=== PATIENT | female | born 1965 | race Caucasian/White ===

== ENCOUNTER 2019-10-27 10:25 | Outpatient (CLI) | payer OTHER, SELFPAY | END 2019-10-27 10:26 | disposition home or self-care (01) | PROVIDERS: PCP Family Medicine; Visit Provider Specialist | DX: L30.8 Other specified dermatitis (principal); D22.61 Melanocytic nevi of right upper limb, including shoulder | CPT/HCPCS: 88305; 88342 ==

== ENCOUNTER 2020-02-09 14:26 | Outpatient (CLI) | payer OTHER, SELFPAY | END 2020-02-09 14:27 | disposition home or self-care (01) | LOC: CHSLAB 14:29 | PROVIDERS: PCP Family Medicine; Visit Provider Specialist | DX: D18.01 Hemangioma of skin and subcutaneous tissue (principal) | CPT/HCPCS: 88305 ==

== ENCOUNTER 2020-07-05 10:14 | Outpatient (CLI) | payer OTHER, SELFPAY ==
--- NOTE | ~2020-07-05 | MM_ITS ---
EXAMINATION: MM screening christopher BI w nisha HISTORY: Screening mammogram, family history of breast cancer in her mother. TECHNIQUE: Craniocaudal and mediolateral oblique 3-D tomosynthesis images were obtained and synthetic 2-D images were generated. CAD analysis was submitted and interpreted. COMPARISON: 02/04/2019, 12/27/2017, 10/18/2016 BREAST PARENCHYMAL COMPOSITION: There are scattered areas of fibroglandular density. FINDINGS: There is no evidence of suspicious mass, calcification, or architectural distortion to sugg est malignancy in either breast. There has been no suspicious interval change. IMPRESSION: 1. No mammographic evidence of malignancy. 2. Recommend routine screening mammography in one year. BI-RADS Category 1: Negative Reviewed, dictated and finalized at location A.
== END 2020-07-05 10:15 | disposition home or self-care (01) ==
PROVIDERS: PCP Family Medicine; Visit Provider Obstetrics & Gynecology
DX: Z12.31 Encounter for screening mammogram for malignant neoplasm of breast (principal)
CPT/HCPCS: 77063; 77067

== ENCOUNTER → 2022-06-15 15:39 | Outpatient (CLI) | payer OTHER, SELFPAY ==
--- NOTE | ~2022-06-15 | MM_ITS ---
EXAMINATION: MM screening christopher BI w nisha HISTORY: Screening TECHNIQUE: Craniocaudal and mediolateral oblique 3-D tomosynthesis images were obtained and synthetic 2-D images were generated. CAD analysis was submitted and interpreted. COMPARISON: Comparison to multiple prior studies sequentially, with oldest reviewed study dated 05/2014. BREAST PARENCHYMAL COMPOSITION: There are scattered areas of fibroglandular density. FINDINGS: There are developing asymmetries in the lower outer quadrant of the right breast and upper outer quadrant of the left breast. There are no suspicious calcifications. IMPRESSION: 1. Developing bilateral breast asymmetries. 2. Additional mammographic views and possible breast ultrasound are recommended. BI-RADS Category 0: Incomplete: Needs additional imaging evaluation. Reviewed, dictated and finalized at location A. IMPRESSION: 1. Developing bilateral breast asymmetries. 2. Additional mammographic views and possible breast ultrasound are recommended . BI-RADS Category 0: Incomplete: Needs additional imaging evaluation.
== END ==
PROVIDERS: PCP Internal Medicine; Visit Provider Obstetrics & Gynecology
DX: Z12.31 Encounter for screening mammogram for malignant neoplasm of breast (principal); R92.8 Other abnormal and inconclusive findings on diagnostic imaging of breast
CPT/HCPCS: 77063; 77067

== ENCOUNTER → 2022-07-03 09:46 | Outpatient (CLI) | payer OTHER, SELFPAY ==
--- NOTE | ~2022-07-03 | MMUS_ITS ---
EXAMINATION: MM diagnostic christopher BI w nisha, US breast LT limited HISTORY: Possible bilateral breast masses on screening mammogram TECHNIQUE: Additional 3-D tomosynthesis images of the breasts were performed and synthetic 2-D images were generated. CAD analysis was submitted and interpreted. High resolution limited left breast ultr asound was performed. COMPARISON: 06/15/2022, 07/05/2020, 02/04/2019, 12/27/2017 FINDINGS: MAMMOGRAPHIC FINDINGS: Right breast: There is a return to baseline fibroglandular appearance with spot compression of the ri ght breast in the area questioned on screening mammogram. Left breast: There is an approximately 1.9 x 1.0 cm irregular, high density mass with spiculated emery ins and associated architectural distortion in the middle third of the upper outer quadrant of the br east at the 2:00 location 9 cm from the nipple. ULTRASOUND: There is a 1.8 x 1.7 cm irregular, hypoechoic, not parallel mass with posterior acoustic shadowing an d internal vascularity at the 2:00 location 7 cm from the nipple corresponding to the mammographic fi nding in question. IMPRESSION: 1. Suspicious left breast mass. 2. Ultrasound-guided biopsy is recommended. BI-RADS category 5, highly suggestive of malignancy. Reviewed, dictated and finalized at location A. IMPRESSION: 1. Suspicious left breast mass. 2. Ultrasound-guided biopsy is recommended. BI-RADS category 5, highly suggestive of malignancy.
== END ==
PROVIDERS: PCP Internal Medicine; Visit Provider Obstetrics & Gynecology
DX: R92.8 Other abnormal and inconclusive findings on diagnostic imaging of breast (principal)
CPT/HCPCS: 76642; 77062; 77066; G0279

== ENCOUNTER 2024-12-30 11:21 | Outpatient (CLI) | payer OTHER, SELFPAY ==
[2024-12-30 12:01] LABS: Alanine Aminotransferase 41 U/L (6-35); Aspartate Amino Transferase 30 U/L (14-36)
--- OUTSIDE RECORDS SUMMARY | 2024-12-30 13:24 | XMS_ITS | Encounter Summary ---
Author Organization [facility] Address [address] [place] [address] Phone Care Team Providers Care Biological Technician Name Role Phone Micah Medina MD Unavailable [phone] Dominick Blanton MD Primary Care Provider [phone] Reason for Visit * Reason Comments Medication Refill Encounter Details Date Type Department Care Team (Late st Contact Info) Description 01/01/2024 [facility]ill [facility] #2 [place] [phone] Dominick Blanton MD #[address] [address] Medication Refill Social History Tobacco Use Types Packs/Day Years Used Date Smoking Tobacco: Every Day Cigarettes 1 32 Smokeless Tobacco: Never Alcohol Use Standard Drinks/Week Comments Not Currently 1 (1 standard drink = 0.6 oz pur e alcohol) 2 x's per week PHQ-2 Answer Date Recorded Total Score - Questions 1-9 0 01/07 Education Answer Date Recorded What is the highest level of school you have completed or the highest degree you have received? 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 Requested Prescriptions Pending Prescriptions Disp Refills ALPRAZolam (XANAX) 0.5 MG Tablet [Pharmacy Med Name: ALPRAZOLAM 0.5MG TABLET] 90 Tablet 0 Sig: TAKE 1 TABLET BY MOUTH THREE (3) TIMES DAILY NEEDED FOR ANXIETY. 3.27 Not Delegated - Benzodiazepines Protocol Failed - 01/01/2024 9:02 AM Failed - This refill cannot be delegated Passed - Visit with relevant provider in past 12 months or upcoming 90 days Recent Visits Date Type Provider Dept 07/31/23 Office Visit Dominick Blanton MD [facility] 01/23/23 Office Visit [facility] [place] Showing recent visits within past 365 days and meeting all other requirements Future Appointments Date Type Provider Dept 01/29/24 Appointment Dominick Blanton MD [facility] Showing future appointments within next 90 days and meeting all other requirements documented in this encounter Plan of Treatment Upcoming Encounters Date Type Department Care Team (Late st Contact Info) Description 02/03/2025 2:00 PM CDT Lab [facility] #[address] [address] [place] [facility]/Anc[facility] 02/03/2025 2:30 PM CDT Office Visit [facility] - [place] #2 [place] [address] Dominick Blanton MD #[address] [address] documented as of this encounter Visit Diagnoses Diagnosis Anxiety Anxiety state, unspecified documented in this encounter Additional Health Concerns Assessment Noted Time PHQ-9 Depression Total Score: 0 10/19/19 21 9:34 AM 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
--- OUTSIDE RECORDS SUMMARY | 2024-12-30 13:24 | XMS_ITS | Encounter Summary ---
Author Organization [facility] Address [address] [place] [place] [address] Phone Care Team Providers Care Manager Nuclear Name Role Phone Micah Medina MD Unavailable [phone] Dominick Blanton MD Primary Care Provider [phone] Reason for Visit * Reason Comments Medication Refill Encounter Details Date Type Department Care Team (Late st Contact Info) Description 03/05/2024 Refill [facility] - Family Medicine [facility] #2 [place] [phone] Dominick Blanton MD #[address] [address] Medication Refill Social History Tobacco Use Types Packs/Day Years Used Date Smoking Tobacco: Every Day Cigarettes 1 32 Smokeless Tobacco: Never Alcohol Use Standard Drinks/Week Comments Not Currently 1 (1 standard drink = 0.6 oz pur e alcohol) 2 x's per week [facility] Utilities Answer Date Recorded In the past 12 months has [employer], gas, oil, or water company threatened to shut off services in your home? No 01/21/2024 Social Connection and Isolation Panel [NHANES] A nswer Date Recorded In a typical week, how many times do you talk on the phone with family, friends, or neighbors? Once a week 01/21/2024 How often do you get togethe r with friends or relatives? Once a week 01/21/2024 How often do you attend advent or tenriism serv ices? Patient declined 01/21/2024 Do you belong to any clubs o r organizations such as advent groups, unions, fraternal or athletic groups, or school groups? No 01/21/2024 How often do you attend meet ings of the clubs or organizations you belong to? Patient declined 01/21/2024 Are you , , di vorced, , never , or living with a partner? Never 01/21/2024 AUDIT-C Answer Date Recorded Q1: How often do you have a drink containing alc ohol? 2-4 times a month 01/21/2024 Q2: How many drinks containi ng alcohol do you have on a typical day when you are drinking? 1 or 2 01/21/2024 Q3: How often do you have si x or more drinks on one occasion? Monthly 01/21/2024 Overall Financial Resource Strain (CARDIA) Answe r Date Recorded How hard is it for you to pa y for the very basics like food, housing, medical care, and heating? Somewhat hard 01/21/2024 PHQ-2 Answer Date Recorded Total Score - Questions 1-9 0 01/07 [facility] - Occupational Stress Questionnaire Answer Date Recorded Do you feel stress - tense, restless, nervous, or anxious, or unable to sleep at night because your mind is troubled all the time - these days? To some extent 01/21/2024 Exercise Vital Sign Answer Date Recorde d On average, how many days pe r week do you engage in moderate to strenuous exercise (like a brisk walk)? 3 days 01/21/2024 On average, how many minutes do you engage in exercise at this level? 30 min 01/21/2024 Hunger Vital Sign Answer Date Recorded Within the past 12 months, y ou worried that your food would run out before you got the money to buy more. Never true Within the past 12 months, t he food you bought just didn't last and you didn't have money to get more. Sometimes true PRAPARE - Transportation Answer Date Re corded In the past 12 months, has l ack of transportation kept you from medical appointments or from getting medications? No 01/07 In the past 12 months, has l ack of transportation kept you from meetings, work, or from getting things needed for daily living? No 01/21/2024 Housing Stability Vital Sign Answer Arcadio e Recorded In the last 12 months, was t here a time when you were not able to pay the mortgage or rent on time? No 01/21/2024 In the last 12 months, how many places have you lived? 1 01/21/2024 In the last 12 months, was t here a time when you did not have a steady place to sleep or slept in a snf (including now)? No 01/21/2024 Education Answer Date Recorded What is the [...] Telephone Encounter - Shaunna Escobar RN - 03/05/2024 11:30 AM CDT Signed Yesterday (03/04/2024): ALPRAZolam (XANAX) 0.5 MG Tablet Sig: TAKE 1 TABLET BY MOUTH THREE (3) TIMES DAILY NEEDED FOR ANXIETY. Disp: 90 Tablet Refills: 0 Signed by: [facility]ick [facility] MD [facility] documented in this encounter Plan of Treatment Upcoming Encounters Date Type Department Care Team (Late st Contact Info) Description 02/03/2025 2:00 PM CDT Lab [facility] [address] [place] [address] [place] [facility]/Anc[facility] 02/03/2025 2:30 PM CDT Office Visit [facility] - [place] #2 [place] [address] [facility]2 [facility] [place] [address] documented as of this encounter Visit Diagnoses Diagnosis Anxiety Anxiety state, unspecified documented in this encounter Additional Health Concerns Assessment Noted Time PHQ-9 Depression Total Score: 0 10/19/19 21 9:34 AM 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
--- OUTSIDE RECORDS SUMMARY | 2024-12-30 13:24 | XMS_ITS | Encounter Summary ---
Author Organization [facility] Address [address] [place] [address] Phone Care Team Providers Care Diesel Locomotive Firer Name Role Phone Micah Medina MD Unavailable [phone] Dominick Blanton MD Primary Care Provider [phone] Reason for Visit * Reason Comments Medication Refill Encounter Details Date Type Department Care Team (Late st Contact Info) Description 02/12/2021 Refill [facility] [place] #2 [place] [address] Waldo Murray MD #[address] [address] Medication Refill Social History Tobacco Use Types Packs/Day Years Used Date Smoking Tobacco: Every Day Cigarettes 1 32 Smokeless Tobacco: Never Alcohol Use Standard Drinks/Week Comments Not Currently 1 (1 standard drink = 0.6 oz pur e alcohol) 2 x's per week PHQ-2 Answer Date Recorded Total Score - Questions 1-9 0 10/10 Education Answer Date Recorded What is the [...] file Not on file Not on file COVID-19 Exposure Response Date Recorded In the last month, have you been in contact with someone who was confirmed or suspected to have Coronavirus / COVID-19? No / Unsure 01/18/2021 9:45 AM CDT documented as of this encounter Miscellaneous Notes * Telephone Encounter - Dominick Blanton MD - 02/13/2021 2:03 PM CDT Prescription approved. Please call in * Telephone Encounter - Shaunna Escobar RN - 02/13/2021 1:48 PM CDT Medication failed the protocol, provider to review and approve the medication order if appropriate. Requested Prescriptions Pending Prescriptions Disp Refills albuterol 108 (90 Base) MCG/ACT Aerosol Solution [Pharmacy Med Name: ALBUTEROL HFA (PROAIR) INHALER] 8.5 Inhaler Sig: INHALE 2 PUFFS BY MOUTH EVERY 6 HOURS NEEDED FOR COUGH [facility] Pulmonology: Beta Agonists - Albuterol & Levalbuterol Failed - 02/12/2021 12:46 AM Failed - Last BP in normal range BP Readings from Last 1 Encounters: 01/18/21 (!) 128/96 Failed - May refill 2 inhalers, 0 refills one time since last office visit. May refill #50 nebulizer vials, 0 refills for albuterol or #48 vials, 0 refills for Xopenex one time since last office visit. Passed - Valid encounter within last 6 months Past Office Visits Recent Outpatient Visits 3 weeks ago Chronic prescription benzodiazepine use [facility] - [facility] Vaughn MD 3 months ago Anxiety [facility] - Waldo Vaughn MD 7 months ago Seasonal allergies [facility] - [facility]do Vaughn MD 10 months ago Chronic prescription benzodiazepine use [facility] - Family [facility] - [facility] Vaughn MD 1 year ago [facility] Upcoming Appointments Future Appointments In 2 months [facility] Blanton MD [facility] SIDE SHOW ENTERTAINER - Recent and Past Visits Recent Visits Date Type Provider Dept 01/18/21 Office Visit Waldo Murray MD [facility] 10/19/20 Office Visit Waldo Murray MD [facility] 07/13/20 Office Visit Waldo Murray MD [facility] 04/06/20 Office Visit Waldo Murray MD [facility] 12/30/19 Telemedicine Wal[facility] Murray MD [facility] Showing recent visits within past 460 days with a meds authorizing provider and meeting all other requirements Future Appointments Date Type Provider Dept 04/19/21 Appointment [facility] Showing future appointments within next 90 days with a meds authorizing provider and meeting all other requirements documented in this encounter Plan of Treatment Upcoming Encounters Date Type Department Care Team (Late st Contact Info) Description 02/03/2025 2:00 PM CDT Lab [facility] #[address] [address] [facility]/Ancillary 02/03/2025 2:30 PM CDT Office Visit [facility] #[facility] [place] [address] Dominick Blanton MD #[address] [place] [address] documented as of this encounter Visit Diagnoses Not on filedocumented in this encounter Additional Health Concerns Infection Onset Date Last Indicated Resolved Time COVID - 19 08/08/2022 08/08/2022 08/18/2022 12:1 6 AM 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
--- OUTSIDE RECORDS SUMMARY | 2024-12-30 13:24 | XMS_ITS | Encounter Summary ---
Author Organization [facility] Address [address] [place] [address] Phone Care Team Providers Care Scientific Helper Name Role Phone Micah Medina MD Unavailable [phone] Dominick Blanton MD Primary Care Provider [phone] Reason for Visit * Reason Comments Medication Refill Encounter Details Date Type Department Care Team (Late st Contact Info) Description 12/05/2023 Refill [facility] #2 [place] [address] Dominick Blanton MD #[address] [address] Medication Refill Social History Tobacco Use Types [...] Telephone Encounter - Shaunna Escobar RN - 12/06/2023 8:40 AM CDT Signed 3 days ago (12/03/2023): ALPRAZolam (XANAX) 0.5 MG Tablet Sig: Take 1 Tablet by mouth 3 times daily as needed for Anxiety. Disp: 90 Tablet Refills: 0 Signed by: Dominick Blanton MD [facility] documented in this encounter Plan of Treatment Upcoming Encounters Date Type Department Care Team (Late st Contact Info) Description 02/03/2025 2:00 PM CDT Lab 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
--- OUTSIDE RECORDS SUMMARY | 2024-12-30 13:24 | XMS_ITS | Encounter Summary ---
Author Organization [facility] Address [address] [place] [address] Phone Care Team Providers Care Communications Engineering Technician Name Role Phone Micah Medina MD Unavailable [phone] Waldo Murray MD Primary Care Provider [phone] Dominick Blanton MD Primary Care Provider [phone] Reason for Visit * Reason Comments Medication Refill Encounter Details Date Type Department Care Team (Late st Contact Info) Description 10/13/2020 Refill [facility] #2 [place] [address] Waldo Murray MD #[address] [address] Medication Refill Social History Tobacco Use Types Packs/Day Years Used Date Smoking Tobacco: Every Day Cigarettes 1 32 Smokeless Tobacco: Never Alcohol Use Standard Drinks/Week Comments Yes 1 (1 standard drink = 0.6 oz pur e alcohol) 2 x's per week PHQ-2 Answer Date Recorded PHQ-2 Score 0 05/23/2019 Education Answer Date Recorded What is the [...] on file documented as of this encounter Plan of Treatment Upcoming Encounters Date Type Department Care Team (Late st Contact Info) Description 02/03/2025 2:00 PM CDT Lab [facility] #[address] [address] [facility] [place] Lab/Ancillary 02/03/2025 2:30 PM CDT Office Visit [facility] - [place] #2 [place] [address] Dominick Blanton MD #[address] [address] documented as of this encounter Visit Diagnoses Not on filedocumented in this encounter Additional Health Concerns Infection Onset Date Last Indicated Resolved Time COVID - 19 08/08/2022 08/08/2022 08/18/2022 12:1 6 AM 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
--- OUTSIDE RECORDS SUMMARY | 2024-12-30 13:24 | XMS_ITS | Encounter Summary ---
Author Organization [facility] Healthcare Address [address] [place] [address] Care Team Providers Care Editorial Cartoonist Name Role Phone Unavailable Primary Care Provider Unavailabl e Reason for Visit * Diagnostic Imaging (Routine) - Closed Specialty Diagnoses / Procedures Referred By Harrison becker Referred To Contact Procedures Breast Imaging Screening Outside Reference Meenu Sauceda NP Phone: tel: fax: Referral ID Status Reason Start Date Expiration Date Visits Re quested Visits Authorized [id number] Closed 07/10/2022 08/09/2023 1 1 Encounter Details Date Type Department Care Team ([facility] st Contact Info) Description 07/05/[address] [facility] [address] [place] [address] Social History Tobacco Use Types Packs/Day Years Used Date Smoking Tobacco: Former Cigarettes 0.5 40.8 S tarted: 1984 Passive Smoke Exposure: Past Smokeless Tobacco: Never AUDIT-C Answer Date Recorded Q1: How often do you have a drink containing alc ohol? 2-4 times a month 06/24/2024 Q2: How many drinks containi ng alcohol do you have on a typical day when you are drinking? 7 to 9 06/24/2024 Q3: How often do you have si x or more drinks on one occasion? Monthly 06/24/2024 PHQ-2 Answer Date Recorded PHQ-2 Total Score (If total score is 3 or more points, staff should administer the PHQ-9) 0 02/18/2023 Personal Safety Answer Date Recorded Have you ever been in or are you currently in a harmful physical or emotional relationship or is someone making you feel afraid or unsafe? 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 2-4 times a month 06/24/2024 11:20 AM Shoshana Patel RN Q2: How many drinks containing alcohol do you have on a typical day when you are drinking? 7 to 9 06/24/2024 11:20 AM Shoshana Patel RN Q3: How often do you have six or more drinks on one occasion? Monthly 06/24/2024 11:20 AM Shoshana Patel RN documented as of this encounter Plan of Treatment Not on file documented as of this encounter Procedures Procedure Name Priority Date/Time Associated Diagnosis Comments BREAST IMAGING MG SCREENING OUTSIDE REFERENCE Routine 07/05/2020 12:00 AM CDT documented in this encounter Results * Breast Imaging Screening Outside Reference (07/05/2020 12:00 AM CDT) Impressions [facility] - 07/10/2022 9:10 AM CDT These images are for Reference purposes only and have not been reviewed by [facility] Radiology. There will be no report generated by a [facility] Radiologist. Narrative [facility] - 07/10/2022 9:10 AM CDT EXAMINATION: Images For Reference Purposes Only us Meenu Sauceda NP IMG MAMMO PROCEDURES Fin al Result [facility] documented in this encounter Visit Diagnoses Not on filedocumented in this encounter
--- OUTSIDE RECORDS SUMMARY | 2024-12-30 13:24 | XMS_ITS | Encounter Summary ---
Author Organization [facility] Healthcare Address [address] [place] [address] Care Team Providers Care Recruiting Assistant Name Role Phone Unavailable Primary Care Provider Unavailabl e Reason for Visit * Diagnostic Imaging (Routine) - Closed Specialty Diagnoses / Procedures Referred By Harrison becker Referred To Contact Procedures Breast Imaging Screening Outside Reference Meenu Sauceda NP Phone: tel: fax: Referral ID Status Reason Start Date Expiration Date Visits Re quested Visits Authorized [id number] Closed 07/10/2022 08/09/2023 1 1 Encounter Details Date Type Department Care Team (Late st Contact Info) Description 02/04/2019 Hospital Encounter [facility] [address] [place] [address] Social History Tobacco Use Types Packs/Day Years [...] on file 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 There will be no report generated by a [facility] Radiologist. Narrative [facility] - 07/10/2022 9:07 AM CDT EXAMINATION: Images For Reference Purposes Only us Meenu Sauceda NP IMG MAMMO PROCEDURES Fin al Result [facility] documented in this encounter Visit Diagnoses Not on filedocumented in this encounter
--- OUTSIDE RECORDS SUMMARY | 2024-12-30 13:24 | XMS_ITS | Encounter Summary ---
Author Organization [facility] Address [address] [place] [address] Phone Care Team Providers Care Dining Services Director Name Role Phone Micah Medina MD Unavailable [phone] Dominick Blanton MD Primary Care Provider [phone] Reason for Visit * Reason Onset Date Comments Medication Refill Medication Refill 06/06/2021 Encounter Details Date Type Department Care Team (Late st Contact Info) Description 06/06/2021 Refill [facility] [address] [place] [id number] Waldo Murray MD [address] [address] Medication Refill; Medication Refill Social History Tobacco Use Types [...] encounter Miscellaneous Notes * Telephone Encounter - Evangelina Perera RN - 06/06/2021 2:55 PM CDT Medication approved and signed per standing order protocol. documented in this encounter Plan of Treatment Upcoming Encounters Date Type Department Care Team (Late st Contact Info) Description 02/03/2025 2:00 PM CDT Lab [facility] [address] [address] [facility] Lab/Ancillary 02/03/2025 2:30 PM CDT Office Visit [facility] - Family Medicine - [place] [address] [place] [address] Dominick Blanton MD [address] [address] documented as of this encounter Visit Diagnoses Not on filedocumented in this encounter Additional Health Concerns Infection Onset Date Last Indicated Resolved Time COVID - 19 08/08/2022 08/08/2022 08/18/2022 12:1 6 AM FAST FOOD SALES ASSISTANT COVID - 19 Confirmed 08/08/2022 08/08/2022 022 12:18 AM FAST FOOD SALES ASSISTANT Assessment Noted Time PHQ-9 Depression Total Score: 0 10/19/19 21 9:34 AM FAST FOOD SALES ASSISTANT documented as of this encounter Care Teams Dining Services Director Relationship Specialty Start Date End Date Dominick Blanton MD [address] [address] PCP - General Family Medicine 01/20/21 Micah Medina MD [address] [address] Obstetrics & Gynecology 04/25/17 documented as of this encounter
--- OUTSIDE RECORDS SUMMARY | 2024-12-30 13:24 | XMS_ITS | Encounter Summary ---
Author Organization [facility] Address [address] [place] [address] Phone Care Team Providers Care Student Loan Counselor Name Role Phone Micah Medina MD Unavailable [phone] Dominick Blanton MD Primary Care Provider [phone] Reason for Visit * Reason Comments Medication Refill Encounter Details Date Type Department Care Team (Late st Contact Info) Description 02/26/2024 Refill [facility] - Family Medicine [facility] [address] [place] [phone] Dominick Blanton MD #[address] [address] Medication Refill Social History Tobacco Use Types Packs/Day Years Used Date Smoking Tobacco: Every Day Cigarettes 1 32 Smokeless Tobacco: Never Alcohol Use Standard Drinks/Week Comments Not Currently 1 (1 standard drink = 0.6 oz pur e alcohol) 2 x's per week [facility] Utilities Answer Date Recorded In the past 12 months has [place], gas, oil, or water company threatened to [...] week 01/21/2024 How often do you attend yarsanism or yazdanism serv ices? Patient declined 01/21/2024 Do you belong to any clubs o r organizations such as yarsanism groups, unions, fraternal or athletic groups, or [...] Total Score - Questions 1-9 0 01/07 [employer]at ional Health - Occupational Stress [...] place to sleep or slept in a intermediate (including now)? No 01/21/2024 Education Answer Date [...] Telephone Encounter - Shaunna Escobar RN - 02/26/2024 11:18 AM CDT Medication(s) [facility]illed and [facility] Chronic Medication Refill Standing Order for Pediatricand Adult Patients. Requested Prescriptions Pending Prescriptions Disp Refills metoprolol tartrate (LOPRESSOR) 25 MG Tablet [Pharmacy Med Name: METOPROLOL TARTRATE 25MG TABLET] 180 Tablet 1 Sig: TAKE 1 TABLET BY MOUTH TWO (2) TIMES DAILY. Beta-Blockers Protocol Passed - 02/26/2024 7:44 AM Passed - BP on record in the past year Clinician-entered: BP Readings from Last 3 Encounters: 01/29/24 125/73 01/22/24 124/86 07/31/23 132/83 Patient-entered: No data recorded Passed - Visit with relevant provider in past 12 months or upcoming 90 days Recent Visits Date Type Provider Dept 01/29/24 Office Visit Dominick Blanton MD [facility] [place] 01/22/24 Office Visit Jackelyn Russo PAC [facility] [place] 07/31/23 Office Visit Dominick Blanton MD [facility] Showing recent visits within past 365 days and meeting all other requirements Future Appointments No visits were found meeting these conditions. Showing future appointments within next 90 days and meeting all other requirements documented in this encounter Plan of Treatment Upcoming Encounters Date Type Department Care Team (Late st Contact Info) Description 02/03/2025 2:00 PM CDT Lab [facility] #[address] [address] [facility] Lab[facility]Ancillary 02/03/2025 2:30 PM CDT Office Visit [facility] Medical Group - Family Medicine - [place] [address] [place] [address] Dominick Blanton MD #[address] [address] documented as of this encounter Visit Diagnoses Not on filedocumented in this encounter Additional Health Concerns Assessment Noted Time PHQ-9 Depression Total Score: 0 10/19/19 21 9:34 AM LABORATORY CHEMICAL ASSISTANT documented as of this encounter Care Teams Student Loan Counselor Relationship Specialty Start Date End Date Dominick Blanton MD [address] [address] PCP - General Family Medicine 01/20/21 Micah Medina MD [address] [address] Obstetrics & Gynecology 04/25/17 documented as of this encounter
--- OUTSIDE RECORDS SUMMARY | 2024-12-30 13:24 | XMS_ITS | Encounter Summary ---
Author Organization [facility] Healthcare Address [address] [place] [address] Care Team Providers Care Polisher Hand Name Role Phone Unavailable Primary Care Provider Unavailabl e Reason for Visit * Diagnostic Imaging (Routine) - Closed Specialty Diagnoses / Procedures Referred By Harrison becker Referred To Contact Procedures Breast Imaging Screening Outside Reference Meenu Sauceda NP Phone: tel: fax: Referral ID Status Reason Start Date Expiration Date Visits Re quested Visits Authorized [id number] Closed 07/10/2022 08/09/2023 1 1 Encounter Details Date Type Department Care Team (Late st Contact Info) Description 12/27/2017 Hospital Encounter [facility] [address] [place] [address] Social History Tobacco Use Types Packs/Day Years [...] on file 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 There will be no report generated by a [facility] Radiologist. Narrative [facility] - 07/10/2022 9:07 AM CDT EXAMINATION: Images For Reference Purposes Only us Meenu Sauceda NP IMG MAMMO PROCEDURES Fin al Result [facility] documented in this encounter Visit Diagnoses Not on filedocumented in this encounter
--- OUTSIDE RECORDS SUMMARY | 2024-12-30 13:24 | XMS_ITS | Encounter Summary ---
Author Organization [facility] Address [address] [place] [address] Phone Care Team Providers Care Databases Software Consultant Name Role Phone Micah Medina MD Unavailable [phone] Dominick Blanton MD Primary Care Provider [phone] Reason for Visit * Reason Comments Medication Refill Encounter Details Date Type Department Care Team (Late st Contact Info) Description 01/03/2024 Refill [facility] [address] [place] [phone] Dominick Blanton MD #[address] [address] Medication Refill Social History Tobacco Use Types [...] Telephone Encounter - Shaunna Escobar RN - 01/03/2024 11:25 AM CDT Signed 2 days ago (01/01/2024): ALPRAZolam (XANAX) 0.5 MG Tablet Sig: TAKE 1 TABLET BY MOUTH THREE (3) TIMES DAILY NEEDED FOR ANXIETY. 3.27 Disp: 90 Tablet Refills: 0 Signed by: Dominick Blanton MD documented in this encounter Plan of Treatment Upcoming Encounters Date Type Department Care Team (Late st Contact Info) Description 02/03/2025 2:00 PM CDT Lab [facility] #[address] [address] [facility] Lab/Ancillary 02/03/2025 2:30 PM CDT Office Visit [facility] - [place] [address] [place] [address] Dominick Blanton MD #[address] [address] documented as of this encounter Visit Diagnoses Diagnosis Anxiety Anxiety state, unspecified documented in this encounter Additional Health Concerns Assessment Noted Time PHQ-9 Depression Total Score: 0 10/19/19 21 9:34 AM GRADUATE ADVISOR documented as of this encounter Care Teams Databases Software Consultant Relationship Specialty Start Date End Date Dominick Blanton MD [address] [address] PCP - General Family Medicine 01/20/21 Micah Medina MD [address] [address] Obstetrics & Gynecology 04/25/17 documented as of this encounter
--- OUTSIDE RECORDS SUMMARY | 2024-12-30 13:24 | XMS_ITS | Encounter Summary ---
Author Organization [facility] Address [address] [place] [address] Phone Care Team Providers Care Study Specialist Name Role Phone Micah Medina MD Unavailable [phone] Waldo Murray MD Primary Care Provider [phone] Dominick Blanton MD Primary Care Provider [phone] Reason for Visit * Reason Comments Medication Refill Encounter Details Date Type Department Care Team (Late st Contact Info) Description 10/09/2020 Refill [facility] - Family Medicine [facility] [address] [place] [address] Waldo Murray MD #[address] [address] Medication Refill Social History Tobacco Use Types [...] Telephone Encounter - Shaunna Escobar RN - 10/10/2020 10:34 AM CST The original prescription was reordered on 10/09/2020 by Waldo Murray MD. duplicate RONMENTAL SCIENTISTS documented in this encounter Plan of Treatment Upcoming Encounters Date Type Department Care Team (Late st Contact Info) Description 02/03/2025 2:00 PM CDT Lab [facility] #[address] [address] [facility] Lab/Ancillary 02/03/2025 2:30 PM CDT Office Visit [facility] - [place] [address] [place] [address] Dominick Blanton MD #[address] [address] documented as of this encounter Visit Diagnoses Diagnosis Anxiety Anxiety state, unspecified documented in this encounter Additional Health Concerns Infection Onset Date Last Indicated Resolved Time COVID - 19 08/08/2022 08/08/2022 08/18/2022 12:1 6 AM ENVIRONMENTAL SCIENTISTS COVID - 19 Confirmed 08/08/2022 08/08/2022 022 12:18 AM ENVIRONMENTAL SCIENTISTS Assessment Noted Time PHQ-9 Depression Total Score: 0 09/29/19 20 1:43 PM ENVIRONMENTAL SCIENTISTS documented as of this encounter Care Teams Study Specialist Relationship Specialty Start Date End Date Waldo Murray MD #[address] [address] PCP - General Family Medicine 12/19/18 5/13/21 Dominick Blanton MD #[address] [address] PCP - General Family Medicine 01/20/21 Micah Medina MD [address] [address] Obstetrics & Gynecology 04/25/17 documented as of this encounter
--- OUTSIDE RECORDS SUMMARY | 2024-12-30 13:24 | XMS_ITS | Encounter Summary ---
Author Organization [facility] Address [address] [place] [address] Phone Care Team Providers Care Assistant Therapy Aide Name Role Phone Micah Medina MD Unavailable [phone] Dominick Blanton MD Primary Care Provider [phone] Reason for Visit * Reason Comments Medication Refill Encounter Details Date Type Department Care Team (Late st Contact Info) Description 12/03/2023 Refill [facility] #[address] [place] [phone] Dominick Blanton MD #[address] [address] Medication Refill Social History Tobacco Use Types [...] Telephone Encounter - Shaunna Escobar RN - 12/03/2023 10:44 AM CDT PDMP 11/05/23 Medication failed the protocol, provider to review and approve the medication order if appropriate. Requested Prescriptions Pending Prescriptions Disp Refills ALPRAZolam (XANAX) 0.5 MG Tablet [Pharmacy Med Name: ALPRAZOLAM 0.5MG TABLET] 90 Tablet 0 Sig: Take 1 Tablet by mouth 3 times daily as needed for Anxiety. Not Delegated - Benzodiazepines Protocol Failed - 12/03/2023 8:55 AM Failed - This refill cannot be delegated Passed - Visit with relevant provider in past 12 months or upcoming 90 days Recent Visits Date Type Provider Dept 07/31/23 Office Visit Dominick Blanton MD [facility] 01/23/23 Office Visit Dominick Blanton MD [facility] Showing recent visits within past 365 days and meeting all other requirements Future Appointments Date Type Provider Dept 01/29/24 Appointment Dominick Blanton MD [facility] Showing future appointments within next 90 days and meeting all other requirements documented in this encounter Plan of Treatment Upcoming Encounters Date Type Department Care Team (Late st Contact Info) Description 02/03/2025 2:00 PM CDT Lab [facility] [address] [address] [place] Lab/Ancillary 02/03/2025 2:30 PM CDT Office Visit [facility] [place] [address] [place] [address] Dominick Blanton MD #[address] [address] documented as of this encounter Visit Diagnoses Diagnosis Anxiety Anxiety state, unspecified documented in this encounter Additional Health Concerns Assessment Noted Time PHQ-9 Depression Total Score: 0 10/19/19 21 9:34 AM PARTNER ALLIANCE MANAGER documented as of this encounter Care Teams Assistant Therapy Aide Relationship Specialty Start Date End Date Dominick Blanton MD #[address] [address] PCP - General Family Medicine 01/20/21 Micah Medina MD [address] [address] Obstetrics & Gynecology 04/25/17 documented as of this encounter
--- OUTSIDE RECORDS SUMMARY | 2024-12-30 13:24 | XMS_ITS | Clinical Summary ---
Author Organization [facility] Address [address] [facility] [address] [place] [address] Phone Care Team Providers Care Gathering Machine Feeder Name Role Phone Micah Medina MD Unavailable [phone] Dominick Blanton MD Primary Care Provider [phone] Allergies Active Allergy Reactions Criticality Noted Date Comments Chlorhexidine Itching Low 02/21/2023 Per patient: only with the wipes Doxycycline Other (see Comments) Low 11/09/2022 Facial flushing Cephalexin Other (see Comments) 01/02/2024 Generalized redness Medications Zinc 30 MG Capsule Take 30 mg by mouth daily. Active Cyanocobalamin (VITAMIN B 12 PO) Take 1,000 mg by mouth daily. Active Ibuprofen (ADVIL PO) Take by mouth as needed. Active [place]-3 Fatty Acids (OMEGA-3 FISH OIL) 1000 MG Capsule Take by mouth. Acti ve Probiotic Product (PROBIOTIC PO) Take by mouth. Active Ascorbic Acid (VITAMIN C PO) Take by mouth. Active Saawdq-Tkntm-O yal Ac-Ca Fructo (MOVE FREE JOINT HEALTH ADVANCE PO) Take by mouth. Activ e Fluticasone Furoate 27.5 MCG/SPRAY Suspension 2 Sprays by Nasal route daily. 9.1 mL 3 01/17/20 22 Active MAGNESIUM PO Take by mouth. Ac tive albuterol 108 (90 Base) MCG/ACT Aerosol Solution take 2 Puffs by inhalation every 6 hours as needed for Cough. 18 g 1 01/02/20 24 Active Cholecalcifero l (VITAMIN D-3 PO) Take by mouth. Activ e metoprolol tartrate (LOPRESSOR) 25 MG Tablet TAKE 1 TABLET BY MOUTH TWO (2) TIMES DAILY. 180 Tablet 1 08/20/20 24 Active ALPRAZolam (XANAX) 0.5 MG TabletIndicati ons:Anxiety TAKE 1 TABLET BY MOUTH THREE (3) TIMES DAILY NEEDED FOR ANXIETY. 90 Tablet 12/10/19 25 Active ALPRAZolam (XANAX) 0.5 MG TabletIndicati ons:Anxiety TAKE 1 TABLET BY MOUTH THREE (3) TIMES DAILY NEEDED FOR ANXIETY. 1.31 90 Tablet 11/08/19 25 025 Discontinued Active Problems Problem Noted Date Diagnosed Date SOB (shortness of breath) 01/18/2021 Fatigue 07/13/2020 High blood pressure 06/17/2019 Chronic prescription benzodiazepine use 03/04/20 19 Seasonal allergies 03/04/2019 Hyperlipidemia 09/02/2018 Vitamin D deficiency 09/02/2018 Obesity (BMI 30-39.9) 08/20/2018 Chronic pain of right thumb 08/20/2018 Anxiety 09/15/2015 Palpitation 09/15/2015 Tobacco abuse 09/15/2015 Encounters Date Type Department Care Team Description 12/09/2024 [facility] [facility] [place] [address] Dominick Blanton MD Medication Refill 11/07/2024 [place] [facility] [place] [facility] [place] [address] Dominick Blanton MD Medication Refill 10/08/2024 [place]ill [facility] [place] [facility] [place] [address] Dominick Blanton MD Medication Refill from Last 3 Months Immunizations Immunization Administration Dates Next Due Influenza Vaccine, Quadrivalent, PF 07/10,07/25/2022,07/19/2021,07/14 Influenza Vaccine,unspecifie d Formulation 07/25/2022 Influenza,Split Virus,Trivalent,Injectable,PF 08/03/2024 Pneumococcal Vaccine Adult - 23 Valent 8 Pneumococcal conjugate PCV20 , polysaccharide [id number] conjugate, adjuvant, PF 01/23/2023 TD VACCINE 01/29/2024 TDAP Vaccine 02/10/2013 Family History Medical History Relation Name Comments High Cholesterol Father Hypertension Father Diabetes Mother High Cholesterol Mother Hypertension Mother Relation Name Status Comments Father Alive Mother Alive Social History Tobacco Use Types Packs/Day Years Used Date Smoking Tobacco: Every Day Cigarettes 1 32 Smokeless Tobacco: Never Tobacco Cessation:Ready to Q uit: No; Counseling Given: No Alcohol Use Standard Drinks/Week Comments Not Currently 1 (1 standard drink = 0.6 oz pur e alcohol) [address] [facility] Answer Date Recorded In the past 12 months has th e [employer], gas, oil, or water [employer] threatened to shut off services in your home? No 01/21/2024 Social Connection and Isolation Panel [NHANES] A nswer Date Recorded In a typical week, how many times do you talk on the phone with family, friends, or neighbors? Once a week 01/21/2024 How often do you get togethe r with friends or relatives? Once a week 01/21/2024 How often do you attend tenriism or synagogue serv ices? Patient declined 01/21/2024 Do you belong to any clubs o r organizations such as tenriism groups, unions, fraternal or athletic groups, or [...] Total Score - Questions 1-9 0 01/07 [facility]at ional [facility] - Occupational Stress Questionnaire Answer Date Recorded [...] file Not on file Not on file Last Filed Vital Signs Vital Sign Reading Time Taken Comments Blood Pressure 132/90 08/31/2024 12:53 PM OVERWEAVER Pulse 83 08/31/2024 12:53 PM OVERWEAVER Temperature 36 C (96.8 F) 08/31/2024 12:53 PM OVERWEAVER Respiratory Rate 16 08/31/2024 12:53 PM OVERWEAVER Oxygen Saturation 90% 08/31/2024 12:53 PM OVERWEAVER Inhaled Oxygen Concentration - - Weight 111.6 kg (246 lb) 08/31/2024 12:53 PM OVERWEAVER Height 165.1 cm (5' 5 ) 08/31/2024 12:53 PM OVERWEAVER Body Mass Index 40.94 08/31/2024 12:53 PM OVERWEAVER Plan of Treatment Upcoming Encounters Date Type Department Care Team (Late st Contact Info) Description 02/03/2025 2:00 PM CDT Lab [facility] [address] [address] [facility] [place] Lab/Ancillary 02/03/2025 2:30 PM CDT Office Visit [facility] - [place] [address] [place] [address] Dominick Blanton MD #[address] [address] Health Maintenance Due Date Last Done Comments Hepatitis B Immunization (1 of 3 - 19+ 3-dose series) 1986 Cologuard 2017 Immunochemical Fecal Occult Blood 2017 Lung Cancer Screening 2017 Zoster Immunization (1 of 2) 2017 Pap Smear 04/07/2022 04/07/2019, 08/09, 02/20/2016, Additional history exists Mammogram 08/20/2023 08/20/2022, 10/2021, 07/18/2022, Additional history exists SARS-COV-2 Immunization () 05/10/2024 Cervical Cancer Screening (CCS) 09/17/2028 HPV/Cotest 09/17/2028 09/17/2023 Colonoscopy 03/17/2029 03/17/2024, 07/0 05/2024, 03/17/2024, Additional history exists Colorectal Cancer Screening 03/17/2029 Td Immunization Every 10 Years (Adults With 1 Tdap) 01/28/2034 01/29/2024, 02/10/2013 Respiratory Syncytial Virus (RSV) Immunization (Adult) (1 - 1-dose 75+ series) 2042 03/17/2024, 07/0 05/2024, 03/17/2024, Additional history exists Hepatitis C Virus (HCV) Screening Completed 08/27/2018 Pneumococcal Immunization (50+ years) Completed 01/23/2023, 08/20/2018 Pneumococcal Immunization Combined Discontinued 01/23/2023, 08/20/2018 Influenza Immunization Completed , 07/24/2023, 07/25/2022, Additional history exists Meningococcal Immunization (ACWY) Aged Out No longer eligible based on patient's age to complete this topic Rotavirus Immunization Aged Out No lo nger eligible based on patient's age to complete this topic Procedures Procedure Name Priority Date/Time Associated Diagnosis Comments HM COLONOSCOPY 03/17/2024 12:00 AM CDT MAMMOGRAM BILATERAL GENERIC 07/03/2022 12:00 AM CDT PATHOLOGY CYTOLOGY MACHINE III COREMAKER (PAP SMEAR) Routine 04/07/2019 HEPATITIS C ANTIBODY Routine 08/27/2018 10:40 AM OVERWEAVER Encounter for hepatitis C screening test for low risk patient from Last 3 Months or Most Recently Relevant to Health Maintenance Results * HM COLONOSCOPY (03/17/2024 12:00 AM CDT) 03/17/2024 Dominick Blanton MD PROCEDURE/MINOR SURGICAL ORDGuido CORRAL Final Result SCAN * MAMMOGRAM BILATERAL MISCELLANEOUS (07/03/2022 12:00 AM CDT) 07/03/2022 us Not On File Provider IMG MAMMO ORDERABLES Final Result SCAN * PATHOLOGY CYTOLOGY MACHINE III COREMAKER (PAP SMEAR) (04/07/2019) us Micah Medina MD PATHOLOGY/CYTOLOGY ORDERABLES F inal Result * HEPATITIS C ANTIBODY (08/27/2018 10:40 AM OVERWEAVER) hepatitis C antibody 0.18 <1 S/CO 08/27/2018 9:58 PM OVERWEAVER [facility] Comment: Signal/Cutoff ratio < 0.79 is Nondetected Signal/Cutoff ratio 0.80-0.99 is Grayzone Signal/Cutoff ratio > 0.99 is Detected Supplemental assays are recommended if signal/cutoff ratio is >/=1.00. Signal/cutoff ratio result >/= 5.00 is 97% predictive of positivity for recombinant immunoblot assay (RIBA) and will be reported to the [place] Department of Public Health as required. Blood specimen (specimen) Venipuncture / Unknown 08/27/2018 10:40 AM OVERWEAVER 08/27/2018 12:50 PM OVERWEAVER us Waldo Murray MD CHEMISTRY ORDERABLES Nuha l Result [facility] [address] [phone], [place] from Last 3 Months or Most Recently Relevant to Health Maintenance Insurance [facility] Care Teams Gathering Machine Feeder Relationship Specialty Start Date End Date Dominick Blanton MD #[address] [address] PCP - General Family Medicine 01/20/21 Micah Medina MD [address] [address] Obstetrics & Gynecology 04/25/17
--- OUTSIDE RECORDS SUMMARY | 2024-12-30 13:24 | XMS_ITS | Encounter Summary ---
Author Organization [facility] Address [address] [place] [address] Phone Care Team Providers Care Hotel Engineer Name Role Phone Micah Medina MD Unavailable [phone] Dominick Blanton MD Primary Care Provider [phone] Reason for Visit * Reason Comments Medication Refill Encounter Details Date Type Department Care Team (Late st Contact Info) Description 02/04/2024 Refill [facility] [place] [phone] Dominick Blanton MD #[address] [address] Medication Refill Social History Tobacco Use Types Packs/Day Years Used Date Smoking Tobacco: Every Day Cigarettes 1 32 Smokeless Tobacco: Never Alcohol Use Standard Drinks/Week Comments Not Currently 1 (1 standard drink = 0.6 oz pur e alcohol) 2 x's per week [facility] Utilities Answer Date Recorded In the past 12 months has [employer], gas, oil, or water company threatened to [...] week 01/21/2024 How often do you attend latter-day or holiness serv ices? Patient declined 01/21/2024 Do you belong to any clubs o r organizations such as latter-day groups, unions, fraternal or athletic groups, or [...] Total Score - Questions 1-9 0 01/07 [facility] - Occupational Stress [...] place to sleep or slept in a mcc (including now)? No 01/21/2024 Education Answer Date [...] encounter Miscellaneous Notes * Telephone Encounter - Meenu Garnica RN - 02/04/2024 2:41 PM CDT PDMP 01-03-24, 30 days Medication failed the protocol, provider to review and approve the medication order if appropriate. Requested Prescriptions Pending Prescriptions Disp Refills ALPRAZolam (XANAX) 0.5 MG Tablet [Pharmacy Med Name: ALPRAZOLAM 0.5MG TABLET] 90 Tablet 0 Sig: TAKE 1 TABLET BY MOUTH THREE (3) TIMES DAILY NEEDED FOR ANXIETY. 4.26 Not Delegated - Benzodiazepines Protocol Failed - 02/04/2024 8:17 AM Failed - This refill cannot be delegated Passed - Visit with relevant provider in past 12 months or upcoming 90 days Recent Visits Date Type Provider Dept 01/29/24 Office Visit Dominick Blanton MD [facility] 01/22/24 Office Visit Jackelyn Russo PAC [facility] 07/31/23 Office Visit [facility] [place] Showing recent visits within past 365 days and meeting all other requirements Future Appointments No visits were found meeting these conditions. Showing future appointments within next 90 days and meeting all other requirements documented in this encounter Plan of Treatment Upcoming Encounters Date Type Department Care Team (Late st Contact Info) Description 02/03/2025 2:00 PM CDT Lab [facility] #[address] [address] [facility] 02/03/2025 2:30 PM CDT Office Visit [facility] - [place] [address] [place] [address] Dominick Blanton MD #[address] [address] documented as of this encounter Visit Diagnoses Diagnosis Anxiety Anxiety state, unspecified documented in this encounter Additional Health Concerns Assessment Noted Time PHQ-9 Depression Total Score: 0 10/19/19 21 9:34 AM 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
--- OUTSIDE RECORDS SUMMARY | 2024-12-30 13:25 | XMS_ITS | Encounter Summary ---
Author Organization [facility] Address [address] [place] [address] Phone Care Team Providers Care Bonsai Tender Name Role Phone Micah Medina MD Unavailable [phone] Dominick Blanton MD Primary Care Provider [phone] Reason for Visit * Reason Comments Medication Refill Encounter Details Date Type Department Care Team (Late st Contact Info) Description 10/03/2023 [facility]ill [facility] [place] [phone] Dominick Blanton MD #[address] [address] Medication Refill Social History Tobacco Use Types [...] Telephone Encounter - Shaunna Escobar RN - 10/03/2023 10:28 AM CST PDMP 09/05/23 Medication failed the protocol, provider to review and approve the medication order if appropriate. Requested Prescriptions Pending Prescriptions Disp Refills ALPRAZolam (XANAX) 0.5 MG Tablet [Pharmacy Med Name: ALPRAZOLAM 0.5MG TABLET] 90 Tablet 0 Sig: TAKE 1 TABLET BY MOUTH THREE (3) TIMES DAILY NEEDED (ANXIETY). Not Delegated - Benzodiazepines Protocol Failed - 10/03/2023 9:47 AM Failed - This refill cannot be delegated Passed - Visit with relevant provider in past 12 months or upcoming 90 days Recent Visits Date Type Provider Dept 07/31/23 Office Visit Dominick Blanton MD [facility] 01/23/23 Office Visit Dominick Blanton MD [facility] [place] Showing recent visits within past 365 days and meeting all other requirements Future Appointments No visits were found meeting these conditions. 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 documented in this encounter Plan of Treatment Upcoming Encounters Date Type Department Care Team (Late st Contact Info) Description 02/03/2025 2:00 PM CDT Lab [facility] #[address] [address] [place] Lab/Ancillary 02/03/2025 2:30 PM CDT [facility] [place] [facility] [place] [address] Dominick Blanton MD #[address] [address] documented as of this encounter Visit Diagnoses Diagnosis Anxiety Anxiety state, unspecified documented in this encounter Additional Health Concerns Assessment Noted Time PHQ-9 Depression Total Score: 0 10/19/19 21 9:34 AM NECK BAND OPERATOR documented as of this encounter Care Teams Bonsai Tender Relationship Specialty Start Date End Date Dominick Blanton MD #[address] [address] PCP - General Family Medicine 01/20/21 Micah Medina MD [address] [address] Obstetrics & Gynecology 04/25/17 documented as of this encounter
--- OUTSIDE RECORDS SUMMARY | 2024-12-30 13:25 | XMS_ITS | Referral Summary ---
Author Organization [facility] Address [address] [place] [address] Care Team Providers Care Crew Car Driver Name Role Phone Micah Medina MD Unavailable [phone] Dominick Blanton MD Primary Care Provider [phone] Tavon Perez MD Unavailable [phone] Encounters Date Type Department Care Team Description 10/08/2024 1:15 PM FIRST CALENDER WORKER Lab [address] [place] [address] Malignant neoplasm of overlapping sites of left breast in female, estrogen receptor positive (HCC); Mild vitamin D deficiency 10/08/2024 1:45 PM FIRST CALENDER WORKER Office Visit [facility] [address] [place] [address] Medical Office [address] [place] [address] Shona Faye, RUFFLING MACHINE OPERATOR Malignant neoplasm of overlapping sites of left breast in female, estrogen receptor positive (HCC) (Primary Dx) 10/07/[address] [place] [address] Shona Faye, RUFFLING MACHINE OPERATOR from Last 3 Months Allergies Active Allergy Reactions Criticality Noted Date Comments Cephalexin Other (See comments) Low 01/02/2024 Generalized redness Chlorhexidine Itching Low 02/21/2023 Per patient: only with the wipes Doxycycline Flushing (skin) Low 11/09/2022 Facial flushing Medications metoprolol tartrate (LOPRESSOR) 25 mg immediate release tabletIndication s:Atrial Arrhythmia,hyper tension,heart palpitations Take 1 tablet (25 mg total) by mouth 2 (two) times a day 2 Active ALPRAZolam (XANAX) 0.5 mg tabletIndication s:anxiety Take 1 tablet (0.5 mg total) by mouth 3 (three) times a day as needed for anxiety 2 Active albuterol HFA (PROVENTIL HFA,VENTOLIN HFA,PROAIR HFA) 90 mcg/actuation inhalerIndicatio ns:Chronic Obstructive Pulmonary Disease Inhale 1-2 puffs every 4 (four) hours as needed (cold symptoms only) 2 Active docosahexaenoic acid/epa (FISH OIL ORAL)Indications :supplement Take 1 tablet by mouth every morning Active cholecalciferol, vitamin D3, (VITAMIN D3 ORAL)Indications :supplement Take 2,000 Units by mouth every morning Active zinc gluconate 30 mg tabletIndication s:supplement Take 30 mg by mouth every morning Active cyanocobalamin, vitamin B-12, (VITAMIN B-12 ORAL)Indications :supplement Take 1 tablet by mouth every morning Active Lactobacillus acidophilus (PROBIOTIC ORAL)Indications :supplement Take 1 tablet by mouth every morning Active mv-min/vit C/elderber/herb 124 (AIRBORNE ELDERBERRY ORAL) Take 2 tablet/chew tab by mouth daily before breakfast Inconsistent with taking Active ibuprofen (ADVIL,MOTRIN) 200 mg tab/cap Take 2 tablet/capsule (400 mg total) by mouth every 6 (six) hours as needed for pain 30 tablet 3 Active acetaminophen (Tylenol Extra Strength) 500 mg tablet Take 2 tablets (1,000 mg total) by mouth every 6 (six) hours as needed for pain 30 tablet 3 Active cyclobenzaprine (FLEXERIL) 10 mg tabletIndication s:Mass of upper outer quadrant of left breast TAKE 1 TABLET (10 MG TOTAL) BY MOUTH THREE (3) (THREE) TIMES a DAY NEEDED FOR MUSCLE SPASMS 20 tablet 3 Active magnesium oxide 400 mg magnesium capsuleIndicatio ns:supplement Take 400 mg by mouth nightly Active loratadine 10 mg capsule Take 10 mg by mouth nightly as needed (allergies) Active MAGNESIUM ORAL Take 1 capsule by mouth nightly Active fexofenadine (KOSTAS) 180 mg tabletIndication s:Allergic Rhinitis Take 1 tablet (180 mg total) by mouth nightly Active psyllium husk 6 gram/6 gram powder Take by mouth Active Active Problems Problem Noted Date Diagnosed Date Encounter for screening colonoscopy 09/06/2023 Personal history of colonic polyps 09/06/2023 History of bilateral mastectomy 08/07/2023 S/P mastectomy, bilateral 05/24/2023 History of left breast cancer 02/18/2023 H/O bilateral mastectomy 12/30/2022 Breast cancer in female 11/02/2022 Malignant neoplasm of overla pping sites of left breast in female, estrogen receptor positive 10/05/2022 Cancer Staging:Pathologic stage from 11/29/2022:Stage IB(pT3, pN0(sn), cM0, G2, ER+, NC+, HER2-) - Unsigned Mass of upper outer quadrant of left breast 07/10 SOB (shortness of breath) 01/18/2021 Fatigue 07/13/2020 High blood pressure 06/17/2019 Seasonal allergies 03/04/2019 Hyperlipidemia 09/02/2018 Vitamin D deficiency 09/02/2018 Chronic pain of right thumb 08/20/2018 Obesity (BMI 30-39.9) 08/20/2018 Anxiety 09/15/2015 Palpitation 09/15/2015 Immunizations Immunization Administration Dates Next Due Influenza, Quadrivalent, Spl it, Preservative Free, Intramuscular 07/24/2023,07/25/2022,07/19/2021,07/14 Influenza, Unspecified 07/25/2022 Pneumococcal Conjugate Pcv20 01/23/2023 Pneumococcal Polysaccharide PPV23 08/20/2018 Td, adsorbed 01/29/2024 Tdap 02/10/2013 Social History Tobacco Use Types Packs/Day Years Used Date Smoking Tobacco: Former Cigarettes 0.5 40.8 S tarted: 1983 Passive Smoke Exposure: Past Smokeless Tobacco: Never Tobacco Cessation:Counseling Given: Yes AUDIT-C Answer Date Recorded Q1: How often [...] on file Legal Sex Female 7:02 PM FIRST CALENDER WORKER Gender Identity Not on file Sexual Orientation Not on file Last Filed Vital Signs Vital Sign Reading Time Taken Comments Blood Pressure 149/87 10/08/2024 1:19 PM FIRST CALENDER WORKER Pulse 80 10/08/2024 1:19 PM FIRST CALENDER WORKER Temperature 36.3 C (97.3 F) 10/08/2024 1:19 PM FIRST CALENDER WORKER Respiratory Rate 20 10/08/2024 1:19 PM FIRST CALENDER WORKER Oxygen Saturation 96% 10/08/2024 1:19 PM FIRST CALENDER WORKER Inhaled Oxygen Concentration - - Weight 111.4 kg (245 lb 9.6 oz) 10/08/2024 1:19 PM FIRST CALENDER WORKER Height 162.6 cm (5' 4.02 ) 10/08/2024 1:19 PM CS T Body Mass Index 42.13 10/08/2024 1:19 PM FIRST CALENDER WORKER Plan of Treatment Not on file Medical Devices Implanted Type Area Lumber Chain Offbearer Device Identifier Shelf Expiration Date Model / Serial / Lot Bard Peripheral Vascular Ultraclip Bard 17ga 10cm 2 Trigger Permanent Ultrasound [id number] - [id number] Implanted:Qty: 1 on 07/18/2022 at [facility] Bard Peripheral Vascular [id number] / / Bard Peripheral Vascular Ultraclip Bard 17ga 10cm 2 Trigger Permanent Ultrasound [id number] - [id number] Implanted:Qty: 1 on 08/20/2022 at [facility] Bard Peripheral Vascular [id number] / / Synovis WD[employer] Marketing Mindy Mcrae Microvascular 3mm Ring Pin Protective Cover Jaw Assembly Latex Free [id number] - [id number] Implanted:Qty: 1 on 02/18/2023 by Meera Alcazar MD at [facility] Left: Breast Synovis Micro The Idle Man Allian [id number] 04/25/2027 [id number] / / [id number] Synovis Micro [employer]le [employer] Allian Baldwin Microvascular 3mm Ring Pin Protective Cover Jaw Assembly Latex Free [id number] - [id number] Implanted:Qty: 1 on 02/18/2023 by Meera Alcazar MD at [facility] Right: Breast Synovis Micro [employer] Idle Man Allian [id number] 03/21/2027 [id number] / / [id number] Synovis Micro [employer] Idle Man Allian Baldwin Cartridge Micro Clip Internal Titanium Hemostatic [id number] - [id number] Implanted:Qty: 4 on 02/18/2023 by Meera Alcazar MD at [facility] Breast [employer] Allian [id number] / / Synovis Micro [employer] Idle Man Allian Hemoclip Superfine Clip Internal [id number] - [id number] Implanted:Qty: 4 on 02/18/2023 by Meera Alcazar MD at [facility] Breast [employer]ovis Micro [employer] Idle [employer] Allian [id number] / / Ethicon Endo Surgery Ligaclip Extra 3.2mm Ligate Open Medium Clip Internal Titanium Latex Free Lt200 - [id number] Implanted:Qty: 6 on 02/18/2023 by Meera Alcazar MD at [facility] Breast Ethicon Endo Surgery [id number] / / Ethicon Endo Surgery Ligaclip Extra 2.6mm Ligate Open Small Clip Internal Titanium Latex Free Lt100 - [id number] Implanted:Qty: 4 on 02/18/2023 by Meera Alcazar MD at [facility] Breast Ethicon Endo Surgery [id number] / / Ethicon Endo Surgery Ligaclip Extra 3.2mm Ligate Open Medium Clip Internal Titanium Latex Free Lt200 - [id number] Implanted:Qty: 1 on 02/18/2023 by Meera Alcazar MD at [facility] Left: Breast Ethicon Endo Surgery [id number] 08/08/2027 LT200 / / [id number] Explanted Type Area Lumber Chain Offbearer Device Identifier Shelf Expiration Date Model / Serial / Lot Sientra Inc Stretcher Drier Operator Tissue 15x13.8cm Breast 600-720cc Texture Integrate Allox2-Fh15e - [id number] - [id number] Implanted:Qty: 1 on 11/02/2022 by Meera Alcazar MD at [facility] Explanted:Qty: 1 on 01/04/2023 at [facility] Left: Breast Sientra Inc 06/28/2025 ALLOX2-FH15 E / [id number] / Sientra Inc Stretcher Drier Operator Tissue 15x13.8cm Breast 600-720cc Texture Integrate Allox2-Fh15e - [id number] - [id number] Implanted:Qty: 1 on 11/02/2022 by Meera Alcazar MD at [facility] Explanted:Qty: 1 on 02/18/2023 by Meera Alcazar MD at [facility] Right: Breast Sientra Inc 02/12/2026 ALLOX2-FH15 E / [id number] / Procedures Procedure Name Priority Date/Time Associated Diagnosis Comments EGFR Routine 10/08/2024 1:05 PM FIRST CALENDER WORKER Malignant neoplasm of overlapping sites of left breast in female, estrogen receptor positive (HCC) DIFFERENTIAL AUTO Routine 10/08/2024 1:0 5 PM FIRST CALENDER WORKER Malignant neoplasm of overlapping sites of left breast in female, estrogen receptor positive (HCC) CBC WITH AUTO DIFFERENTIAL Routine 10/08/2024 1:05 PM FIRST CALENDER WORKER Malignant neoplasm of overlapping sites of left breast in female, estrogen receptor positive (HCC) COMPREHENSIVE METABOLIC PANEL Routine 10/08/2024 1:05 PM FIRST CALENDER WORKER Malignant neoplasm of overlapping sites of left breast in female, estrogen receptor positive (HCC) COLONOSCOPY 03/17/2024 8:58 AM CDT from Last 3 Months or Most Recently Relevant to Health Maintenance Results * eGFR (10/08/2024 1:05 PM FIRST CALENDER WORKER) eGFR >90 >=60 mL/min/1. 73 m2 Comment: Interpretive Data Reference Interval Normal >/= 90 mL/min/1.73m2 Mildly decreased* 60 - 89 mL/min/1.73m2 Mildly to moderately decreased 45 - 59 mL/min/1.73m2 Moderately to severely decreased 30 - 44 mL/min/1.73m2 Severely decreased 15 - 29 mL/min/1.73m2 Kidney Failure < 15 mL/min/1.73m2 *Relative to young adult level Estimated glomerular filtration rate is determined by the 2020 CKD-EPI equation recommended by the National Kidney Foundation (A Unifying Approach to GFR Estimation: Recommendations of the NKF-ASK Task Force on Reassessing the Inclusion of Race in Diagnosing Kidney Disease, JASN 2020). The CKD-EPI equation should not be used for patients with unstable renal function and has not been validated in children and those over 70. Current interpretive data was last reviewed 2021. Testing performed by: [facility], [facility], [place], [address] Blood 10/08/2024 1:05 PM FIRST CALENDER WORKER 10/08/2024 1:48 PM FIRST CALENDER WORKER us Shona Faye RUFFLING MACHINE OPERATOR LAB BLOOD ORDERABLES Final Result KE PERRY (MINEOLA) [address] [facility] Department [place] [address] * Differential, auto (10/08/2024 1:05 PM FIRST CALENDER WORKER) Neutrophil abs 3.8 1.5 - 6.5 K/cumm Comment:Testing performed by : [facility] [address], Medical Office [facility] [address], [place] [address] Imm gran abs 0.0 0.0 - 0.1 K/cumm KE PERRY ([place]INE[place]) Comment:Testing performed by : [facility] [address], Medical Office [facility] [address], [place] [address] Lymphocyte abs 1.8 0.8 - 3.3 K/cumm [facility] (MAIK) Comment:Testing performed by : [facility] [address], Medical Office [address], [place] [address] Monocyte abs 0.3 0.2 - 0.8 K/cumm [facility] (MAIK) Comment:Testing performed by : [facility] [address], Medical Office [address], [place] [address] Eosinophil abs 0.1 0.0 - 0.5 K/cumm [facility] (MAIK) Comment:Testing performed by : [facility] [address], Medical Office [address], [place] [address] Basophil abs 0.0 0.0 - 0.1 K/cumm [facility] (MAIK) Comment:Testing performed by : [facility] [address], Medical Office [address], [place] [address] Neutrophil pct 61.8 % [facility] (MAIK) Comment: Interpretive Data Percent cell count reference ranges are not reported, since discordance with absolute values may lead to misinterpretation of CBC data. Current Interpretive Data was last revised on 2022. Testing performed by: [facility] [address], Medical Office [facility] [address], [place] [address] Imm gran pct 0.5 % [facility] (MAIK) Comment: Interpretive Data Percent cell count reference ranges are not reported, since discordance with absolute values may lead to misinterpretation of CBC data. Current Interpretive Data was last revised on 2022. Testing performed by: [facility] [address], Medical Office [facility] [address], [place] [address] Lymphocyte pct 29.4 % [facility] (MAIK) Comment: Interpretive Data Percent cell count reference ranges are not reported, since discordance with absolute values may lead to misinterpretation of CBC data. Current Interpretive Data was last revised on 2022. Testing performed by: [facility] [address], Medical Office [address], [place] [address] Monocyte pct 5.5 % [facility] (MAIK) Comment: Interpretive Data Percent cell count reference ranges are not reported, since discordance with absolute values may lead to misinterpretation of CBC data. Current Interpretive Data was last revised on 2022. Testing performed by: [facility] [address], Medical Office [facility] [address], [place] [address] Eosinophil pct 2.3 % SHAHZAD PERRY (MAIK) Comment: Interpretive Data Percent cell count reference ranges are not reported, since discordance with absolute values may lead to misinterpretation of CBC data. Current Interpretive Data was last revised on 2022. Testing performed by: [facility] [address], Medical Office [facility] [address], [place] [address] Basophil pct 0.5 % KE PERRY (MAIK) Comment: Interpretive Data Percent cell count reference ranges are not reported, since discordance with absolute values may lead to misinterpretation of CBC data. Current Interpretive Data was last revised on 2022. Testing performed by: [facility] [address], Medical Office [facility] [address] [facility] [address], [place] [address] Blood 10/08/2024 1:05 PM FIRST CALENDER WORKER 10/08/2024 1:06 PM FIRST CALENDER WORKER us Shona Faye RUFFLING MACHINE OPERATOR LAB BLOOD ORDERABLES Final Result KE PERRY (MAIK) 1 [facility] [place] [address] * CBC with auto differential (10/08/2024 1:05 PM FIRST CALENDER WORKER) WBC 6.2 3.8 - 9.9 K/cumm Comment:Testing performed by : [facility] [address], Medical Office [facility] [address], [place] [address] Hgb 14.2 11.9 - 15.5 g/dL KE PERRY (MAIK) Comment:Testing performed by : [facility] [address], Medical Office [facility] [address], [place] [address] Hct 43.3 35.6 - 45.5 % KE PERRY (MAIK) Comment:Testing performed by : [facility] [address], Medical Office [facility] [address], [place] [address] Plt 223 150 - 400 K/cumm [facility] (MAIK) Comment:Testing performed by : [facility] [address], Medical Office [facility] [address], [place] [address] MPV 9.1 9.1 - 12.3 fL [facility] (MAIK) Comment:Testing performed by : [facility] [address], Medical Office [address], [place] [address] RBC 5.13 3.90 - 5.20 M/cumm [facility] (MAIK) Comment:Testing performed by : [facility] [address], Medical Office [facility] [address], [place] [address] MCV 84.4 81.3 - 96.4 fL [facility] (MAIK) Comment:Testing performed by : [facility] [address], Medical Office [facility] [address], [place] [address] MCH 27.7 27.1 - 33.3 pg [facility] (MAIK) Comment:Testing performed by : [facility] [address], Medical Office [facility] [address], [place] [address] MCHC 32.8 32.3 - 35.7 g/dL [facility] (MAIK) Comment:Testing performed by : [facility] [address], Medical Office [facility] [address], [place] [address] RDW CV 12.8 11.1 - 14.9 % [facility] (MAIK) Comment:Testing performed by : [facility] [address], Medical Office [facility] [address], [place] [address] RDW SD 39.8 35.7 - 48.1 fL [facility] (MAIK) Comment:Testing performed by : [facility] [address], Medical Office [address], [place] [address] NRBC abs Not Measured 0.00 - 0.01 K/cumm [facility] (MAIK) Comment:Testing performed by : [facility] [address], Medical Office [facility] [address], [place] [address] Blood 10/08/2024 1:05 PM FIRST CALENDER WORKER 10/08/2024 1:06 PM FIRST CALENDER WORKER Shona Faye RUFFLING MACHINE OPERATOR LAB BLOOD ORDERABLES Final Result KE PERRY ([place]) [address] [place] [address] Department [place] [address] * Comprehensive metabolic panel (10/08/2024 1:05 PM FIRST CALENDER WORKER) Sodium 139 135 - 145 mmol/L Comment:Testing performed by : [facility], [facility], [place], [address] Potassium, pl 4.1 3.3 - 4.9 mmol/L [facility] ([place]) Comment:Testing performed by : [facility], [place], [address] Chloride 99 97 - 110 mmol/L [facility] ([place]) Comment:Testing performed by : [facility], [place], [address] CO2 29 22 - 32 mmol/L [facility] (MAIK) Comment:Testing performed by : [facility], [place], [address] Anion gap 11 2 - 15 mmol/L [facility] (MAIK) Comment:Testing performed by : [facility], [place], [address] BUN 21 6 - 25 mg/dL [facility] ([place]) Comment:Testing performed by : [place], [address] Creatinine 0.70 0.60 - 1.10 mg/dL [facility] ([place]) Comment:Testing performed by : [place], [address] Glucose 120 70 - 199 mg/dL [facility] ([place]) Comment: Interpretive Data Fasting glucose >/= 126 mg/dl is diagnostic for diabetes. Fasting is defined as no caloric intake for at least 8 hours. Fasting glucose between 100 mg/dl to 125 mg/dl is diagnostic of prediabetes. In a patient with classic symptoms of hyperglycemia or hyperglycemic crisis, a random glucose >/= 200 mg/dl is diagnostic for diabetes. In the absence of unequivocal hyperglycemia, results should be confirmed by repeat testing. The classification and Diagnosis of Diabetes Diabetes Care 2021; 46: S19-S40. Current interpretive data was last revised 2022. Testing performed by: [facility], [facility], [place], [address] Calcium 9.5 8.5 - 10.3 mg/dL [facility] ([place]) Comment:Testing performed by : [facility], [facility], [place], [address] Bilirubin, total 0.4 0.1 - 1.2 mg/dL [facility] ([place]) Comment:Testing performed by : [facility], [place], [address] Protein, pl 7.4 6.5 - 8.5 g/dL [facility] ([place]) Comment:Testing performed by : [facility], [place], [address] Albumin 4.5 3.5 - 5.0 g/dL [facility] ([place]) Comment:Testing performed by : [facility], [place], [address] Alk phos 60 40 - 130 Units/L [facility] ([place]) Comment:Testing performed by : [facility], [place], [address] ALT 34 7 - 45 Units/L [facility] ([place]) Comment:Testing performed by : [facility], [place], [address] AST 19 10 - 45 Units/L [facility] ([place]) Comment:Testing performed by : [facility], [place], [address] Blood 10/08/2024 1:05 PM FIRST CALENDER WORKER 10/08/2024 1:48 PM FIRST CALENDER WORKER Shona Faye RUFFLING MACHINE OPERATOR LAB BLOOD ORDERABLES Final Result [facility] ([place]) [address] [place] [address] Department [place] [address] * Colonoscopy (03/17/2024 8:58 AM CDT) Anatomical Region Laterality Modality Other Narrative Procedure Note Alfredo Womack MD - 03/17/2024 8:58 AM CDT [facility] Patient Name: Jackelyn Padron Procedure Date: 03/17/2024 8:58 AM Date of : 1965 Admit Type: Outpatient Age: 58 Gender: Female Attending MD: Alfredo Womack M.D. Room: [facility] ENDOSCOPY ROOM 1 Note Status: Finalized Patient Profile: This is a 58 year old female. History of polyps.Noted complaints of chronic loose bowel movements andurgency Procedure: Colonoscopy Indications: High risk colon cancer surveillance: Personalhistory of colonic polyps, Last colonoscopy: February 2018 Referring MD: Dominick Blanton M.D. Providers: Alfredo Womack M.D. Impression: - Overall unremarkable colonoscopy. Random colon biopsy performed - Three 2 to 3 mm polyps in the sigmoid colon andin the descending colon, removed with a jumbo cold forceps. Resected and retrieved. - Internal hemorrhoids. Recommendation: - Repeat colonoscopy in 5-7 years for screening purposes. - Await pathology results. - Continue present medications. - Try probiotics daily and fiber supplementsdaily. Medicines: Monitored Anesthesia Care Complications: No immediate complications. Estimated Blood Loss: Estimated blood loss: none. Procedure: Pre-Anesthesia Assessment: - Prior to the procedure, a History and Physicalwas performed, and patient medications and allergieswere reviewed. The patient's tolerance of previous anesthesia was also reviewed. The risks andbenefits of the procedure and the sedation options and risks were discussed with the patient. All questions were answered, and informed consent was obtained. Prior Anticoagulants: The patient has taken noanticoagulant or antiplatelet agents. ASA Grade Assessment: Per anesthesia note and evaluation. After reviewing the risks and benefits, the patient was deemed in satisfactory condition to undergo the procedure. The benefits, risks and alternatives of theprocedure and sedation were discussed and informed consentwas obtained. All questions were answered. Please referto the signed informed consent document in the medical record. The bowel preparation used was Miralax via split dose instruction. The bowel preparation usedwas bisacodyl tablets via split dose instruction. The scope was passed under direct vision. The Pediatric Colonoscope [id number]-H190L [id number] was introducedthrough the anus and advanced to the the cecum, identifiedby appendiceal orifice and ileocecal valve. Thequality of the bowel preparation was good. Bowel prep was administered using a split dose. Findings: The perianal and digital rectal examinations were normal. The cecum appeared normal. The transverse colon and ascending colon appeared normal. The entire colon mucosa overall was normal and random colon biopsy wasperformed Three semi-sessile polyps were found in the sigmoid colon anddescending colon. The polyps were 2 to 3 mm in size. These polyps were removedwith a jumbo cold forceps. Resection and retrieval were complete. Internal hemorrhoids were found during retroflexion. The hemorrhoids were small. Electronically signed by Alfredo Womack M.D. Alfredo Womack M.D. 03/17/2024 11:14:11 AM Number of Addenda: 0 Note Initiated On: 03/17/2024 8:58 AM Procedure Code(s): --- Professional --- 54972, Colonoscopy, flexible; with biopsy, single or multiple Diagnosis Code(s): --- Professional --- Z86.010, Personal history of colonic polyps K64.8, Other hemorrhoids D12.5, Benign neoplasm of sigmoid colon D12.4, Benign neoplasm of descending colon CPT copyright 2020 [employer]. All rights reserved. The codes documented in this report are preliminary and upon certified procedural coder reviewmay be revised to meet current compliance requirements. Recognized by the [employer] for promoting quality in endoscopy Alfredo Womack MD ENDOSCOPY PROCEDURES Final Result from Last 3 Months or Most Recently Relevant to Health Maintenance Insurance [place] [id number] Advance Directives For more information, please contact: [phone] * Full Code (Latest Code Status on File) Date Activated Date Inactivated Comments 03/17/2024 8:57 AM 03/17/2024 3:50 PM * Full Code Date Activated Date Inactivated Comments 03/17/2024 8:57 AM 03/17/2024 8:57 AM * Full Code Date Activated Date Inactivated Comments 02/18/2023 4:43 PM 02/21/2023 2:29 PM * Full Code Date Activated Date Inactivated Comments 11/02/2022 6:03 PM 11/03/2022 2:43 PM Care Teams Crew Car Driver Relationship Specialty Start Date End Date Dominick Blanton MD [address] [address] PCP - General Family Medicine 07/04/22 Micah Medina MD [address] [address] Referring Physician Obstetrics and Gynecology 07/04/22 Tavon Perez MD [address] [address] Medical Oncologist/Athletic Coach Hematology and Oncology 01/31/23
--- OUTSIDE RECORDS SUMMARY | 2024-12-30 13:25 | XMS_ITS | Encounter Summary ---
Author Organization [facility] Address [address] [place] [address] Phone Care Team Providers Care Tangled Yarn Spool Straightener Name Role Phone Micah Medina MD Unavailable [phone] Dominick Blanton MD Primary Care Provider [phone] Reason for Visit * Reason Comments Medication Refill Encounter Details Date Type Department Care Team (Late st Contact Info) Description 07/05/2023 Refill [facility] #2 [place] [phone] Dominick Blanton MD #[address] [address] Medication Refill Social History Tobacco Use Types [...] Telephone Encounter - Shaunna Escobar RN - 07/05/2023 11:56 AM CDT PDMP 05/31/23 Medication failed the protocol, provider to review and approve the medication order if appropriate. Requested Prescriptions Pending Prescriptions Disp Refills ALPRAZolam (XANAX) 0.5 MG Tablet [Pharmacy Med Name: ALPRAZOLAM 0.5MG TABLET] 90 Tablet 0 Sig: TAKE 1 TABLET BY MOUTH THREE (3) TIMES DAILY NEEDED FOR ANXIETY. Not Delegated - Benzodiazepines Protocol Failed - 07/05/2023 11:54 AM Failed - This refill cannot be delegated Passed - Visit with relevant provider in past 12 months or upcoming 90 days Recent Visits Date Type Provider Dept 01/23/23 Office Visit Dominick Blanton MD [facility] 08/08/22 Office Visit Cira Pino APRN, GEOTHERMAL SHEET METAL WORKER [facility] 07/25/22 Office Visit Dominick Blanton MD [facility] Showing recent visits within past 365 days and meeting all other requirements Future Appointments Date Type Provider Dept 07/31/23 Appointment Dominick Blanton MD [facility] Showing future appointments within next 90 days and meeting all other requirements documented in this encounter Plan of Treatment Upcoming Encounters Date Type Department Care Team (Late st Contact Info) Description 02/03/2025 2:00 PM CDT Lab [facility] [place] [address] [facility] 02/03/2025 2:30 PM CDT Office Visit [facility] - [place] [facility] [place] [address] Dominick Blanton MD #2 [facility] [address] [place] [address] documented as of this encounter Visit Diagnoses Diagnosis Anxiety Anxiety state, unspecified documented in this encounter Additional Health Concerns Assessment Noted Time PHQ-9 Depression Total Score: 0 10/19/19 21 9:34 AM 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
--- OUTSIDE RECORDS SUMMARY | 2024-12-30 13:25 | XMS_ITS | Encounter Summary ---
Author Organization [facility] Address [address] [place] [address] Phone Care Team Providers Care Wind Operations Manager Name Role Phone Micah Medina MD Unavailable [phone] Dominick Blanton MD Primary Care Provider [phone] Reason for Visit * Reason Comments Medication Refill Encounter Details Date Type Department Care Team (Late st Contact Info) Description 2023 Refill [facility] - Family Medicine [facility] #2 [place] [phone] Dominick Blanton MD #[address] [address] Medication Refill Social History Tobacco Use Types [...] Telephone Encounter - Shaunna Escobar RN - 2023 2:29 PM CDT Signed 3 days ago (07/05/2023): ALPRAZolam (XANAX) 0.5 MG Tablet Sig: TAKE 1 TABLET BY MOUTH THREE (3) TIMES DAILY NEEDED FOR ANXIETY. Disp: 90 Tablet ? Refills: 0 Signed by: Dominick Blanton MD [facility] documented in this encounter Plan of Treatment Upcoming Encounters Date Type Department Care Team (Late st Contact Info) Description 02/03/2025 2:00 PM CDT Lab [facility] #[address] [address] [facility] [place] Lab/[facility] 02/03/2025 2:30 PM CDT Office Visit [facility] - Family Medicine - [place] #2 [place] [address] Dominick Blanton MD #[address] [address] documented as of this encounter Visit Diagnoses Diagnosis Anxiety Anxiety state, unspecified documented in this encounter Additional Health Concerns Assessment Noted Time PHQ-9 Depression Total Score: 0 10/19/19 21 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
--- OUTSIDE RECORDS SUMMARY | 2024-12-30 13:25 | XMS_ITS | Encounter Summary ---
Author Organization [facility] Address [address] [place] [address] Phone Care Team Providers Care Microsoft Exchange Administrator Name Role Phone Micah Medina MD Unavailable [phone] Dominick Blanton MD Primary Care Provider [phone] Reason for Visit * Reason Comments Medication Refill Encounter Details Date Type Department Care Team (Late st Contact Info) Description 05/29/2023 Refill [facility] #2 [place] [phone] Dominick Blanton MD #[address] [address] Medication Refill Social History Tobacco Use Types [...] encounter Miscellaneous Notes * Telephone Encounter - Trina Reilly RN - 05/29/2023 2:59 PM CDT PDMP 04/29/23 30 day supply Medication failed the protocol, provider to review and approve the medication order if appropriate. Requested Prescriptions Pending Prescriptions Disp Refills ALPRAZolam (XANAX) 0.5 MG Tablet [Pharmacy Med Name: ALPRAZOLAM 0.5MG TABLET] 90 Tablet 0 Sig: TAKE 1 TABLET BY MOUTH THREE (3) TIMES DAILY NEEDED FOR ANXIETY. 8.21 Not Delegated - Benzodiazepines Protocol Failed - 05/29/2023 9:10 AM Failed - This refill cannot be delegated Passed - Visit with relevant provider in past 12 months or upcoming 90 days Recent Visits Date Type Provider Dept 01/23/23 Office Visit Dominick Blanton MD [facility] [place] 08/08/22 Office Visit Cira Pino APRN, ASSET CARD CLERK [facility] [place] 07/25/22 Office Visit Dominick Blanton MD [facility] [place] Showing recent visits within past 365 days and meeting all other requirements Future Appointments Date Type Provider Dept 07/31/23 Appointment Dominick Blanton MD [facility] [place] Showing future appointments within next 90 days and meeting all other requirements documented in this encounter Plan of Treatment Upcoming Encounters Date Type Department Care Team (Late st Contact Info) Description 02/03/2025 2:00 PM CDT Lab [facility] #[address] [place] [address] [place] [facility] 02/03/2025 2:30 PM CDT Office Visit [facility] - [facility] - [place] #2 [facility] [address] Dominick Blanton MD #2 [facility] [address] [place] [address] documented as of this encounter Visit Diagnoses Diagnosis Anxiety Anxiety state, unspecified documented in this encounter Additional Health Concerns Assessment Noted Time PHQ-9 Depression Total Score: 0 10/19/19 21 9:34 AM 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
--- OUTSIDE RECORDS SUMMARY | 2024-12-30 13:25 | XMS_ITS | Encounter Summary ---
Author Organization [facility] Address [address] [place] [address] Phone Care Team Providers Care Hospice Nurse Practitioner Name Role Phone Micah Medina MD Unavailable [phone] Dominick Blanton MD Primary Care Provider [phone] Reason for Visit * Reason Comments Medication Refill Encounter Details Date Type Department Care Team (Late st Contact Info) Description 11/04/2023 Refill [facility] - Family Medicine [facility] #2 [place] [phone] Dominick Blanton MD #[address] [address] Medication Refill Social History Tobacco Use Types [...] Telephone Encounter - Shaunna Escobar RN - 11/04/2023 3:51 PM CST PDMP 10/05/23 Medication failed the protocol, provider to review and approve the medication order if appropriate. Requested Prescriptions Pending Prescriptions Disp Refills ALPRAZolam (XANAX) 0.5 MG Tablet [Pharmacy Med Name: ALPRAZOLAM 0.5MG TABLET] 90 Tablet 0 Sig: Take 1 Tablet by mouth 3 times daily as needed for Anxiety. Not Delegated - Benzodiazepines Protocol Failed - 11/04/2023 8:49 AM Failed - This refill cannot be [...] 90 days and meeting all other requirements KER AND PATCHER documented in this encounter Plan of Treatment Upcoming Encounters Date Type Department Care Team (Late st Contact Info) Description 02/03/2025 2:00 PM CDT Lab [facility] #[address] [address] [place] [facility] 02/03/2025 2:30 PM CDT Office Visit [facility] - [facility] - [place] #2 [place] [address] Dominick Blanton MD #[address] [address] documented as of this encounter Visit Diagnoses Diagnosis Anxiety Anxiety state, unspecified documented in this encounter Additional Health Concerns Assessment Noted Time PHQ-9 Depression Total Score: 0 10/19/19 21 9:34 AM SPARKER AND PATCHER documented as of this encounter Care Teams Hospice Nurse Practitioner Relationship Specialty Start Date End Date Dominick Blanton MD #[address] [address] PCP - General Family Medicine 01/20/21 Micah Medina MD [address] [facility] [address] [address] Obstetrics & Gynecology 04/25/17 documented as of this encounter
--- OUTSIDE RECORDS SUMMARY | 2024-12-30 13:25 | XMS_ITS | Encounter Summary ---
Author Organization [facility] Address [address] [place] [address] Phone Care Team Providers Care Hardware Trainer Name Role Phone Micah Medina MD Unavailable [phone] Dominick Blanton MD Primary Care Provider [phone] Reason for Visit * Reason Comments Medication Refill Encounter Details Date Type Department Care Team (Late st Contact Info) Description 10/07/2023 Refill [facility] - Family Medicine [facility] #2 [place] [phone] Dominick Blanton MD #[address] [address] Medication Refill Social History Tobacco Use Types [...] Telephone Encounter - Shaunna Escobar RN - 10/07/2023 3:25 PM CST Signed 4 days ago (10/03/2023): ALPRAZolam (XANAX) 0.5 MG Tablet Sig: TAKE 1 TABLET BY MOUTH THREE (3) TIMES DAILY NEEDED (ANXIETY). Disp: 90 Tablet ? Refills: 0 Signed by: Dominick Blanton MD H TRAIN ASSEMBLER documented in this encounter Plan of Treatment Upcoming Encounters Date Type Department Care Team (Late st Contact Info) Description 02/03/2025 2:00 PM CDT Lab [facility] #[address] [address] [facility] Lab/Ancillary 02/03/2025 2:30 PM CDT Office Visit [facility] - Family Medicine - [place] #2 [place] [address] Dominick Blanton MD #[address] [address] documented as of this encounter Visit Diagnoses Diagnosis Anxiety Anxiety state, unspecified documented in this encounter Additional Health Concerns Assessment Noted Time PHQ-9 Depression Total Score: 0 10/19/19 21 9:34 AM WATCH TRAIN ASSEMBLER documented as of this encounter Care Teams Hardware Trainer Relationship Specialty Start Date End Date Dominick Blanton MD #[address] [address] PCP - General Family Medicine 01/20/21 Micah Medina MD [address] [address] Obstetrics & Gynecology 04/25/17 documented as of this encounter
--- OUTSIDE RECORDS SUMMARY | 2024-12-30 13:25 | XMS_ITS | Clinical Summary ---
Author Organization [facility] Address [address] [place] [address] Care Team Providers Care Glue Jointer Operator Name Role Phone Micah Medina MD Unavailable [phone] Dominick Blanton MD Primary Care Provider [phone] Tavon Perez MD Unavailable [phone] Allergies Active Allergy Reactions Criticality Noted Date [...] from 11/29/2022:Stage IB(pT3, pN0(sn), cM0, G2, ER+, PA+, HER2-) - Unsigned Mass of upper outer quadrant of left breast 07/10 SOB (shortness of breath) 01/18/2021 Fatigue 07/13/2020 High blood pressure 06/17/2019 Seasonal allergies 03/04/2019 Hyperlipidemia 09/02/2018 Vitamin D deficiency 09/02/2018 Chronic pain of right thumb 08/20/2018 Obesity (BMI 30-39.9) 08/20/2018 Anxiety 09/15/2015 Palpitation 09/15/2015 Encounters Date Type Department Care Team Description 10/08/2024 1:45 PM MORTGAGE LOAN OFFICER Office Visit [facility] [address] [place] [address] Medical Office [address] [place] [address] Shona Faye, LYNN Malignant neoplasm of overlapping sites of left breast in female, estrogen receptor positive (HCC) (Primary Dx) 10/08/2024 1:15 PM MORTGAGE LOAN OFFICER Lab [address] [place] [address] Malignant neoplasm of overlapping sites of left breast in female, estrogen receptor positive (HCC); Mild vitamin D deficiency 10/07/[address] [place] [address] Shona Faye, LYNN from Last 3 Months Immunizations Immunization Administration Dates Next Due Influenza, Quadrivalent, Spl it, Preservative Free, Intramuscular 07/24/2023,07/25/2022,07/19/2021,07/14 Influenza, Unspecified 07/25/2022 Pneumococcal Conjugate Pcv20 01/23/2023 Pneumococcal Polysaccharide PPV23 08/20/2018 Td, adsorbed 01/29/2024 Tdap 02/10/2013 Surgical History Surgery Date Site/Laterality Comments BREAST BIOPSY 07/18/2022 Left BREAST BIOPSY 08/20/2022 Left CHOLECYSTECTOMY 09/09/2009 - 09/08/2010 KNEE ARTHROSCOPY 09/09/2007 - 09/08/2008 Right TUBAL LIGATION 20 yrs ago per pt COLONOSCOPY 09/09/2017 - 09/08/2018 INSERTION OF TISSUE SUBSTITUTE CROSSING GUARD AFTER MASTECTOMY 11/02/2022 Bilateral BREAST RECONSTRUCTION 09/09/2022 - 09/08/2023 DANIELLE flap BREAST SURGERY 02/18/2023 free flap DANIELLE; removal tissue oval or circular glass cutter Medical History Medical History Date Comments Overweight Anxiety Hyperlipidemia 09/02/2018 Breast cancer (HCC) Family History Medical History Relation Name Comments Breast cancer Mother Anesthesia problems Neg Hx Relation Name Status Comments Mother Social History Tobacco Use Types Packs/Day Years [...] on file Legal Sex Female 7:02 PM MORTGAGE LOAN OFFICER Gender Identity Not on file Sexual Orientation Not on file Obstetrics History Last Filed Vital Signs Vital Sign Reading Time Taken Comments Blood Pressure 149/87 10/08/2024 1:19 PM MORTGAGE LOAN OFFICER Pulse 80 10/08/2024 1:19 PM MORTGAGE LOAN OFFICER Temperature 36.3 C (97.3 F) 10/08/2024 1:19 PM MORTGAGE LOAN OFFICER Respiratory Rate 20 10/08/2024 1:19 PM MORTGAGE LOAN OFFICER Oxygen Saturation 96% 10/08/2024 1:19 PM MORTGAGE LOAN OFFICER Inhaled Oxygen Concentration - - Weight 111.4 kg (245 lb 9.6 oz) 10/08/2024 1:19 PM MORTGAGE LOAN OFFICER Height 162.6 cm (5' 4.02 ) 10/08/2024 1:19 PM CS T Body Mass Index 42.13 10/08/2024 1:19 PM MORTGAGE LOAN OFFICER Plan of Treatment Health Maintenance Due Date Last Done Comments Cervical Cancer Screening 1965 Hepatitis C Screening 1965 Hepatitis B Screening 1985 Regular Well Visit/Exam 18-64 1985 Lung Cancer Screening 2017 Zoster Vaccine (1 of 2) 2017 Breast Cancer Screening-Mammogram 07/05/2021 07/05/2020 Depression Screening 12/31/2023 12/30/2022 DTaP/Tdap/Td Vaccine (3 - Td or Tdap) 01/28/2034 01/29/2024, 02/10/2013 Colon Cancer Screening-Colonoscopy 03/17/2034 03/17/2024 Pneumococcal vaccine <65 Aged Out 01/23/2023, 08/09 No longer eligible based on patient's age to complete this topic Influenza Vaccine Completed 08/03/2024, , 07/25/2022, Additional history exists Medical Devices Implanted Type Area Product Architect Device Identifier Shelf Expiration Date Model / Serial / Lot Bard Peripheral Vascular Ultraclip Bard 17ga 10cm 2 Trigger Permanent Ultrasound [id number] - [id number] Implanted:Qty: 1 on 07/18/2022 at [facility] Bard Peripheral Vascular [id number] / / Bard Peripheral Vascular Ultraclip Bard 17ga 10cm 2 Trigger Permanent Ultrasound [id number] - [id number] Implanted:Qty: 1 on 08/20/2022 at [facility] Bard Peripheral Vascular [id number] / / Moove Ins Twelvefold Marco Antonioian [place] Microvascular 3mm Ring Pin Protective Cover Jaw Assembly Latex Free [id number] - [id number] Implanted:Qty: 1 on 02/18/2023 by Meera Alcazar MD at [facility] Left: Breast [employer] Mindy [id number] 04/25/2027 [id number] / / [id number] Synovis Twelvefold Allian [place] Microvascular 3mm Ring Pin Protective Cover Jaw Assembly Latex Free [id number] - [id number] Implanted:Qty: 1 on 02/18/2023 by Meera Alcazar MD at [facility] Right: Breast Syn[employer] Jazzdesk Allian [id number] 03/21/2027 [id number] / / [id number] Syn[employer]is Twelvefold Allian [place] Cartridge Micro Clip Internal Titanium Hemostatic [id number] - [id number] Implanted:Qty: 4 on 02/18/2023 by Meera Alcazar MD at [facility] Breast [employer] Allian [id number] / / Synovis Micro Jazzdesk Allian Hemoclip Superfine Clip Internal [id number] - [id number] Implanted:Qty: 4 on 02/18/2023 by Meera Alcazar MD at [facility] Breast [employer]k Allian [id number] / / Ethicon End[employer] Ligaclip Extra 3.2mm Ligate Open Medium Clip Internal Titanium Latex Free Lt200 - [id number] Implanted:Qty: 6 on 02/18/2023 by Meera Alcazar MD at [facility] Breast Ethicon Endo Surgery [id number] / / Ethicon Endo Surgery Ligaclip Extra 2.6mm Ligate Open Small Clip Internal Titanium Latex Free Lt100 - [id number] Implanted:Qty: 4 on 02/18/2023 by Meera Alcazar MD at [facility] Breast Eth[employer] Endo Surgery LT100 / / Ethicon Endo Surgery Ligaclip Extra 3.2mm Ligate Open Medium Clip Internal Titanium Latex Free Lt200 - [id number] Implanted:Qty: 1 on 02/18/2023 by Meera Alcazar MD at [facility] Left: Breast [employer] End[employer] [id number] 08/08/2027 LT200 / / [id number] Explanted Type Area Product Architect Device Identifier Shelf Expiration Date Model / Serial / Lot Sientra Inc Health And Wellness Coach Tissue 15x13.8cm Breast 600-720cc Texture Integrate Allox2-Fh15e - [id number] - [id number] Implanted:Qty: 1 on 11/02/2022 by Meera Alcazar MD at [facility] Explanted:Qty: 1 on 01/04/2023 at [facility] Left: Breast [employer] 06/28/2025 ALLOX2-FH15 E / [id number] / [employer] Health And Wellness Coach Tissue 15x13.8cm Breast 600-720cc Texture Integrate Allox2-Fh15e - [id number] - [id number] Implanted:Qty: 1 on 11/02/2022 by Meera Alcazar MD at [facility] Explanted:Qty: 1 on 02/18/2023 by Meera Alcazar MD at [facility] Right: Breast [employer] 02/12/2026 ALLOX2-FH15 E / [id number] / Procedures Procedure Name Priority Date/Time Associated Diagnosis Comments EGFR Routine 10/08/2024 1:05 PM MORTGAGE LOAN OFFICER Malignant neoplasm of overlapping sites of left breast in female, estrogen receptor positive (HCC) DIFFERENTIAL AUTO Routine 10/08/2024 1:0 5 PM MORTGAGE LOAN OFFICER Malignant neoplasm of overlapping sites of left breast in female, estrogen receptor positive (HCC) CBC WITH AUTO DIFFERENTIAL Routine 10/08/2024 1:05 PM MORTGAGE LOAN OFFICER Malignant neoplasm of overlapping sites of left breast in female, estrogen receptor positive (HCC) COMPREHENSIVE METABOLIC PANEL Routine 10/08/2024 1:05 PM MORTGAGE LOAN OFFICER Malignant neoplasm of overlapping sites of left breast in female, estrogen receptor positive (HCC) COLONOSCOPY 03/17/2024 8:58 AM CDT from Last 3 Months or Most Recently Relevant to Health Maintenance Results * eGFR (10/08/2024 1:05 PM MORTGAGE LOAN OFFICER) eGFR >90 >=60 mL/min/1. 73 m2 Comment: [...] was last reviewed 2021. Testing performed by: [facility], [facility], [place], [address] Blood 10/08/2024 1:05 PM MORTGAGE LOAN OFFICER 10/08/2024 1:48 PM MORTGAGE LOAN OFFICER us Shona Faye CHAIN MAKER LOOM CONTROL LAB BLOOD ORDERABLES Final Result KE PERRY (RAKE) [address] [facility] Department [place] [address] * Differential, auto (10/08/2024 1:05 PM MORTGAGE LOAN OFFICER) Neutrophil abs 3.8 1.5 - 6.5 K/cumm Comment:Testing performed by : [facility] [address], Medical Office [facility] [address], [place] [address] Imm gran abs 0.0 0.0 - 0.1 K/cumm [facility] ([place]) Comment:Testing performed by : [facility] [address], Medical Office [facility] [address], [place] [address] Lymphocyte abs 1.8 0.8 - 3.3 K/cumm [facility] ([place]) Comment:Testing performed by : [facility] [address], Medical Office [facility] [address], [place] [address] Monocyte abs 0.3 0.2 - 0.8 K/cumm [facility] ([place]) Comment:Testing performed by : [facility] [address], Medical Office [facility] [address], [place] [address] Eosinophil abs 0.1 0.0 - 0.5 K/cumm [facility] ([place]) Comment:Testing performed by : [facility] [address], Medical Office [facility] [address], [place] [address] Basophil abs 0.0 0.0 - 0.1 K/cumm [facility] ([place]) Comment:Testing performed by : [facility] [address], Medical Office [facility] [address], [place] [address] Neutrophil pct 61.8 % [facility] ([place]) Comment: Interpretive Data Percent cell count reference ranges are not reported, since discordance with absolute values may lead to misinterpretation of CBC data. Current Interpretive Data was last revised on 2022. Testing performed by: [facility] [address], Medical Office [facility] [address], [place] [address] Imm gran pct 0.5 % [facility] ([place]) Comment: Interpretive Data Percent cell count reference ranges are not reported, since discordance with absolute values may lead to misinterpretation of CBC data. Current Interpretive Data was last revised on 2022. Testing performed by: [facility] [address], Medical Office [facility] [address], [place] [address] Lymphocyte pct 29.4 % [facility] ([place]) Comment: Interpretive Data Percent cell count reference ranges are not reported, since discordance with absolute values may lead to misinterpretation of CBC data. Current Interpretive Data was last revised on 2022. Testing performed by: [facility] [address], Medical Office [facility] [address], [place] [address] Monocyte pct 5.5 % [facility] ([place]) Comment: Interpretive Data Percent cell count reference ranges are not reported, since discordance with absolute values may lead to misinterpretation of CBC data. Current Interpretive Data was last revised on 2022. Testing performed by: [facility] [address], Medical Office [facility] B [facility] [address], [place] [address] Eosinophil pct 2.3 % [facility] ([place]) Comment: Interpretive Data Percent cell count reference ranges are not reported, since discordance with absolute values may lead to misinterpretation of CBC data. Current Interpretive Data was last revised on 2022. Testing performed by: [facility] [address], Medical Office [facility] B [facility] [address], [place] [address] Basophil pct 0.5 % [facility] ([place]) Comment: Interpretive Data Percent cell count reference ranges are not reported, since discordance with absolute values may lead to misinterpretation of CBC data. Current Interpretive Data was last revised on 2022. Testing performed by: [facility] [address], Medical Office [facility] [address], [place] [address] Blood 10/08/2024 1:05 PM MORTGAGE LOAN OFFICER 10/08/2024 1:06 PM MORTGAGE LOAN OFFICER us Shona Faye CHAIN MAKER LOOM CONTROL LAB BLOOD ORDERABLES Final Result [facility] ([place]) [address] [facility] Department of Laboratories [place], [place] [address] * CBC with auto differential (10/08/2024 1:05 PM MORTGAGE LOAN OFFICER) WBC 6.2 3.8 - 9.9 K/cumm Comment:Testing performed by : [facility] [address], Medical Office [facility] [address], [place] [address] Hgb 14.2 11.9 - 15.5 g/dL [facility] ([place]) Comment:Testing performed by : [facility] [address], Medical Office [facility] [address], [place] [address] Hct 43.3 35.6 - 45.5 % [facility] ([place]) Comment:Testing performed by : [facility] [address], Medical Office [facility] [address], [place] [address] Plt 223 150 - 400 K/cumm [facility] ([place]) Comment:Testing performed by : [facility] [address], Medical Office [facility] [address], [place] [address] MPV 9.1 9.1 - 12.3 fL [facility] ([place]) Comment:Testing performed by : [facility] [address], Medical Office [address], [place] [address] RBC 5.13 3.90 - 5.20 M/cumm [facility] ([place]) Comment:Testing performed by : [facility] [address], Medical Office [facility] [address], [place] [address] MCV 84.4 81.3 - 96.4 fL KE PERRY (MAIK) Comment:Testing performed by : [facility] [address], Medical Office [facility] [address], [place] [address] MCH 27.7 27.1 - 33.3 pg KE PERRY (MAIK) Comment:Testing performed by : [facility] [address], Medical Office [facility] [address], [place] [address] MCHC 32.8 32.3 - 35.7 g/dL KE PERRY (MAIK) Comment:Testing performed by : [facility] [address], Medical Office [facility] [address], [place] [address] RDW CV 12.8 11.1 - 14.9 % KE PERRY (MAIK) Comment:Testing performed by : [facility] [address], Medical Office [facility] [address], [place] [address] RDW SD 39.8 35.7 - 48.1 fL KE PERRY (MAIK) Comment:Testing performed by : [facility] [address], Medical Office [facility] B [facility] [address], [place] [address] NRBC abs Not Measured 0.00 - 0.01 K/cumm KE PERRY ([place]) Comment:Testing performed by : [facility] [address], Medical Office [facility] B [facility] [address], [place] [address] Blood 10/08/2024 1:05 PM MORTGAGE LOAN OFFICER 10/08/2024 1:06 PM MORTGAGE LOAN OFFICER Shona Faye CHAIN MAKER LOOM CONTROL LAB BLOOD ORDERABLES Final Result KE PERRY ([place]IK) [address] [facility] Department [place] [address] * Comprehensive metabolic panel (10/08/2024 1:05 PM MORTGAGE LOAN OFFICER) Sodium 139 135 - 145 mmol/L Comment:Testing performed by : [facility], [facility], [place], [address] Potassium, pl 4.1 3.3 - 4.9 mmol/L [facility] ([place]) Comment:Testing performed by : [facility], [place], [address] Chloride 99 97 - 110 mmol/L [facility] ([place]) Comment:Testing performed by : [facility], [facility], [place], [address] CO2 29 22 - 32 mmol/L [facility] ([place]) Comment:Testing performed by : [facility], [facility], [place], [address] Anion gap 11 2 - 15 mmol/L [facility] ([place]) Comment:Testing performed by : [facility], [facility], [place], [address] BUN 21 6 - 25 mg/dL [facility] ([place]) Comment:Testing performed by : [facility], [place], [address] Creatinine 0.70 0.60 - 1.10 mg/dL [facility] ([place]) Comment:Testing performed by : [facility], [place], [address] Glucose 120 70 - 199 mg/dL [facility] ([place]) Comment: Interpretive Data Fasting glucose >/= 126 [...] was last revised 2022. Testing performed by: [facility], [place], [address] Calcium 9.5 8.5 - 10.3 mg/dL [facility] ([place]) Comment:Testing performed by : [facility], [place], [address] Bilirubin, total 0.4 0.1 - 1.2 mg/dL [facility] ([place]) Comment:Testing performed by : [facility], [place], [address] Protein, pl 7.4 6.5 - 8.5 g/dL [facility] ([place]) Comment:Testing performed by : [facility], [facility], [place], [address] Albumin 4.5 3.5 - 5.0 g/dL [facility] ([place]) Comment:Testing performed by : [facility], [facility], [place], [address] Alk phos 60 40 - 130 Units/L [facility] ([place]) Comment:Testing performed by : [facility], [facility], [place], [address] ALT 34 7 - 45 Units/L [facility] ([place]) Comment:Testing performed by : [facility], [facility], [place], [address] AST 19 10 - 45 Units/L [facility] ([place]) Comment:Testing performed by : [facility], [facility], [place], [address] Blood 10/08/2024 1:05 PM MORTGAGE LOAN OFFICER 10/08/2024 1:48 PM MORTGAGE LOAN OFFICER Shona Faye CHAIN MAKER LOOM CONTROL LAB BLOOD ORDERABLES Final Result KE PERRY ([place]) [address] [facility] Department [place] [address] * Colonoscopy (03/17/2024 8:58 AM CDT) Anatomical Region Laterality Modality Other Narrative Procedure Note Alfredo Womack MD - 03/17/2024 8:58 AM CDT [facility] Patient Name: Jackelyn Padron Procedure Date: 03/17/2024 8:58 AM Date of : 1965 Admit Type: Outpatient Age: 58 Gender: Female Attending MD: Alfredo Womack M.D. Room: [facility] ROOM 1 Note Status: Finalized Patient [...] under direct vision. The Pediatric Colonoscope PCF-H190L [id number] was introducedthrough the anus and advanced to [...] 8:58 AM Procedure Code(s): --- Professional --- 21731, Colonoscopy, flexible; with biopsy, single or multiple Diagnosis Code(s): --- Professional --- Z86.010, Personal history of colonic polyps K64.8, Other hemorrhoids D12.5, Benign neoplasm of sigmoid colon D12.4, Benign neoplasm of descending colon CPT copyright 2020 [employer]. All rights reserved. The codes documented in this report are preliminary and upon mails supervisor reviewmay be revised to meet current compliance requirements. Recognized by the [employer] for promoting quality in endoscopy Alfredo Womack MD ENDOSCOPY PROCEDURES Final Result from Last 3 Months or Most Recently Relevant to Health Maintenance Insurance [facility] CHOICE PLUS [facility] CHOICE PLUS Advance Directives For more information, please contact: [phone] * Full Code (Latest Code Status on File) Date Activated Date Inactivated Comments 03/17/2024 8:57 AM 03/17/2024 3:50 PM * Full Code Date Activated Date Inactivated Comments 03/17/2024 8:57 AM 03/17/2024 8:57 AM * Full Code Date Activated Date Inactivated Comments 02/18/2023 4:43 PM 02/21/2023 2:29 PM * Full Code Date Activated Date Inactivated Comments 11/02/2022 6:03 PM 11/03/2022 2:43 PM Care Teams Glue Jointer Operator Relationship Specialty Start Date End Date Dominick Blanton MD [address] [address] PCP - General Family Medicine 07/04/22 Micah Medina MD [address] [address] Referring Physician Obstetrics and Gynecology 07/04/22 Tavon Perez MD [address] [address] Medical Oncologist/Torpedoman'S Mate Hematology and Oncology 01/31/23
--- OUTSIDE RECORDS SUMMARY | 2024-12-30 13:25 | XMS_ITS ---
Author Organization [facility] Address [address] [place] [address] Care Team Providers Care Used Car Lot Porter Name Role Phone Micah Medina MD Unavailable [phone] Dominick Blanton MD Primary Care Provider [phone] Tavon Perez MD Unavailable [phone] Active Problems Problem Noted Date Diagnosed Date [...] from 11/29/2022:Stage IB(pT3, pN0(sn), cM0, G2, ER+, CO+, HER2-) - Unsigned Mass of upper outer quadrant of left breast 07/10 SOB (shortness of breath) 01/18/2021 Fatigue 07/13/2020 High blood pressure 06/17/2019 Seasonal allergies 03/04/2019 Hyperlipidemia 09/02/2018 Vitamin D deficiency 09/02/2018 Chronic pain of right thumb 08/20/2018 Obesity (BMI 30-39.9) 08/20/2018 Anxiety 09/15/2015 Palpitation 09/15/2015 Current Treatment and Therapy Plans No current plan information found. Past Treatment and Therapy Plans No past plan information found. Lifetime Dose Tracking * Chemical Lifetime Dose Automatic Entry Manual Entr y DLP 1,759 mGycm 1,759 mGycm 0 mGycm
== END 2024-12-30 11:22 | disposition home or self-care (01) ==
LOC: ANHLAB 11:25
PROVIDERS: PCP Internal Medicine; Visit Provider Podiatrist Foot & Ankle Surgery
DX: B35.1 Tinea unguium (principal)
CPT/HCPCS: 36415; 84450; 84460